=== PATIENT | male | born 1930 | race Caucasian/White ===

== ENCOUNTER 2016-12-21 16:20 | Emergency (ER) | payer MEDICARE, OTHER ==
[2016-12-21 16:55] VITALS: BP 106/72
--- NOTE | 2016-12-21 18:17 | UC ---
Maria Guadalupe Garcia Alok, scribed for Clemencia Batres MD on 12/21/16 at 1651 . Shortness of Breath HPI - HPI Summary HPI Summary: 86M presents to the [facility] for SOB. His symptoms worsen with laughter and ambulation. Pt denies CP or leg pain. Pt just drove from [facility] to [place] last night. Pt with hx CHF on lasix, afib on pradaxa. PMHx includes sudden onset of PNA 2 years ago. Pt had aortic heart valve replaced 2012. Pt had CABG 17 years ago. Pt denies h/o NSTEMI and denies home O2. Pt takes Pradaxa , Lasix, and Aspirin and metoprolol. - History of Current Complaint Stated Complaint: SOB Time Seen by Provider: 12/21/16 16:38 Hx Obtained From: Patient, Family/Post Anesthesia Room Nurse - Onset/Duration: Gradual Onset, Lasting Hours, Still Present Timing: Constant Current Severity: Moderate Dyspnea At: Rest Aggrevating Factors: Movement, Deep Breaths Alleviating Factors: Nothing Associated Signs & Symptoms: Positive: Other - SOB. Negative: Cough (Productive ), Cough (Nonproductive), Cough (Bloody Sputum), Wheezing, Chest Pain w/Cough, Chest Pain Unrelated to Cough, Fever, Calf Pain/Swelling - Risk Factors Pulmonary Embolism: Recent Travel Cardiac: Prior [place], CHF Pseudomonas: Negative Tuberculosis: Negative - Allergy/Home Medications Allergies/Adverse Reactions: Allergies Allergy/AdvReac Type Severity Reaction Status Date / Time No Known Allergies Allergy Verified 12/21/16 16:37 PMH/Surg Hx/FS Hx/Imm Hx Endocrine History Of: Reports: Thyroid Disease Denies: Diabetes Cardiovascular History Of: Reports: Cardiac Disorders - CHF,CABG 1995, NSTEMI, Hypertension, Congestive Heart Failure, Atrial Fibrillation Denies: Pacemaker/ICD Respiratory History Of: Denies: COPD, Asthma GI/ History Of: Reports: Gastroesophageal Reflux Denies: Renal Disease Neurological History Of: Denies: CVA, Dementia, Seizures Psychological History Of: Reports: Anxiety Denies: Depression Other History Of: Anticoagulant Therapy - pradaxa - Surgical History Surgical History: Yes Surgery Procedure, Year, and Place: CABG x5 15 yrs ago - Family History Known Family History: Negative: Cardiac Disease, Hypertension, Diabetes - Social History Occupation: Retired Lives: With Family Alcohol Use: None Substance Use Type: None Smoking Status (MU): Never Smoked Tobacco - Immunization History Most Recent Influenza Vaccination: 2013 Most Recent Tetanus Shot: UNK Most Recent Pneumonia Vaccination: 2012 Review of Systems Constitutional: Negative Respiratory: Shortness Of Breath Cardiovascular: Negative Gastrointestinal: Negative Musculoskeletal: Negative Neurological: Negative Psychological: Negative All Other Systems Reviewed And Are Negative: Yes Physical Exam Triage Information Reviewed: Yes Appearance: No Pain Distress, Well-Nourished, Ill-Appearing Vital Signs: Initial Vital Signs Temp 97.5 F 12/21/16 16:38 Pulse 82 12/21/16 16:38 Resp 32 12/21/16 16:38 BP 106/72 12/21/16 16:38 Pulse Ox 100 12/21/16 16:38 Vital Signs Reviewed: Yes Eyes: Positive: Conjunctiva Clear ENT: Positive: Normal ENT inspection Neck: Positive: Supple, Other: - JVD 6cm Respiratory: Positive: Decreased breath sounds, Other: - Rales bibasalar Cardiovascular: Positive: Murmur:Sys:Grade _?_/ - II, Other: - irregularly irregular Abdomen Description: Positive: Nontender, Soft Bowel Sounds: Positive: Present Musculoskeletal: Positive: Strength Intact, ROM Intact Neurological: Positive: Alert, Muscle Tone Normal Psychological Exam: Normal Skin Exam: Normal Diagnostics - EKG Cardiac Rate: Other Rate - A fib 86 bpm Cardiac Rhythm: AFib: New - TIME: 1638. Prolonged IV conduction time and LBBB. Prolonged QTc 553. Negative Mandan -52. LBBB new compared to 01/11/2017 Shortness of Breath Dx - Course Course Of Treatment: Pt medications reviewed this visit. Pt presented with SOB. Pt denies pain. Vitals reviewed: O2 sat 100, Resp Rate 32. EKG done; shows A- Fib and new LBBB from 2014. Pt will be given 2L O2 and transfered to ED for further evaluation and treatment. - Differential Dx/Diagnosis Differential Diagnosis/HQI/PQRI: CHF, COPD Exacerbation, [place], Pneumonia, Unstable Angina Provider Diagnoses: acute dyspnea - Physician Notification/Consults Discussed Patient Care With: Dr. Farr (ED) @ 5354 - Made aware of pt condition and transit to ED from [facility] by ambulance Instructed by Provider To: MD Will See In ED Discharge - Discharge Plan Condition: Stable Disposition: TRANS [facility] Referrals: Arcadio Sheikh MD [Primary Care Provider] - The documentation as recorded by the Maria Guadalupe evangelista Alok accurately reflects the service I personally performed and the decisions made by me, Clemencia Batres MD.
== END 2016-12-21 17:20 | disposition short-term general hospital (02) ==
LOC: UCEAST 16:20
DX: R06.02 Shortness of breath (principal); I48.91 Unspecified atrial fibrillation; I44.7 Left bundle-branch block, unspecified
CPT/HCPCS: 93005; 99213; G0463

== ENCOUNTER 2016-12-21 17:41 | Observation (INO) | payer MEDICARE, OTHER ==
[2016-12-21 19:00] LABS: Hematocrit 34 % (42-52); Hemoglobin 11.3 g/dl (14.0-18.0); Mean Corpuscular HGB Conc 33 g/dl (31-36); Mean Corpuscular Hemoglobin 31 pg (27-31); Mean Corpuscular Volume 93 fL (80-94); Mean Platelet Volume 10 um3 (7.4-10.4); Red Blood Count 3.66 10^6/ul (4.0-5.4); Red Cell Distribution Width 15 % (10.5-15); White Blood Count 5.5 10^3/ul (3.5-10.8)
[2016-12-21 19:24] LABS: Albumin 3.4 g/dL (3.2-5.2); BUN/Creatinine Ratio 27.6 (8-20); Calcium 8.2 mg/dL (8.6-10.3); EGFR African American 124.5 (>60); EGFR Non-African American 96.8 (>60); Globulin 2.5 g/dL (2-4); Potassium 3.5 mmol/L (3.5-5.0); Total Bilirubin 0.9 mg/dL (0.2-1.0); Total Protein 5.9 g/dL (6.4-8.9)
[2016-12-21 19:25] LABS: Troponin I 0.03 ng/mL (<0.04)
--- NOTE | 2016-12-21 19:31 | RAD ---
INDICATION: Shortness of breath COMPARISON: Most recent chest x-ray January 29, 2016 TECHNIQUE: Single AP portable view of the chest was obtained. FINDINGS: Image quality is compromised due to the relative inferiority of a portable chest x-ray. Postoperative findings appear similar to the previous chest x-ray including sternotomy wires and a prosthetic device overlying the expected location of the aortic valve. There is worsening cardiomegaly relative to the previous chest x-ray now with a moderate degree of cardiomegaly increased from a small degree. There is increased patchy densities and appearance of vascular congestion. There is a mild degree of bibasilar costophrenic angle blunting. Visualized bones are normal for the patient's age. IMPRESSION: Chest x-ray findings are consistent with interval worsening of cardiogenic pulmonary edema with an apparent increase in the degree of cardiomegaly relative to the previous chest x-ray.
[2016-12-21] MEDS ORDERED: Furosemide IV* 10 MG/ML VIAL (40 MG) IV SLOW PU ONE (20:02)
--- NOTE | 2016-12-21 20:22 | ED ---
Jared Garcia Benjamin, scribed for Baron Torres MD on 12/21/16 at 1928 . Shortness of Breath - HPI Summary HPI Summary: 86yo male comes from with c/o SOB with any exertions. Pt has chronic SOB, but reports his SOB worsened this morning. Pt had recent long distance car ride. Pt states that oxygen treatment is helping. Denies CP. Hx of heart valve replacement 2 yrs ago. Also Hx of CHF, Afib, Open Heart surgery 1995, valve replacement, and is on Plavix. - History of Current Complaint Chief Complaint: EDShortnessOfBreath Time Seen by Provider: 12/21/16 18:30 Hx Obtained From: Patient, Family/Pulmonary Physical Therapist - Onset/Duration: Sudden Onset, Lasting Hours, Still Present Timing: Constant Current Severity: Mild Dyspnea At: Exertion Aggrevating Factors: Nothing Alleviating Factors: Oxygen Associated Signs & Symptoms: Negative - Risk Factors Pulmonary Embolism: Recent Travel - Allergy/Home Medications Allergies/Adverse Reactions: Allergies Allergy/AdvReac Type Severity Reaction Status Date / Time No Known Allergies Allergy Verified 12/21/16 16:37 PMH/Surg Hx/FS Hx/Imm Hx Endocrine/Hematology History: Reports: Hx Anticoagulant Therapy - pradaxa, Hx Thyroid Disease Denies: Hx Diabetes Cardiovascular History: Reports: Hx Congestive Heart Failure, Hx Coronary Artery Disease, Hx Hypertension, Hx Valvular Heart Disease - AORTIC STENOSIS, Other Cardiovascular Problems/Disorders - afib, aortic stenosis Denies: Hx Pacemaker/ICD Respiratory History: Denies: Hx Asthma, Hx Chronic Obstructive Pulmonary Disease (COPD) GI History: Reports: Hx Gastroesophageal Reflux Disease, Hx Hiatal Hernia, Other GI Disorders - DYSPHAGIA. EXPLORED FOR ESOPHAGEAL STRICTURE BUT NONE FOUND Denies: Hx Ulcer History: Denies: Hx Renal Disease Sensory History: Reports: Hx Contacts or Glasses Opthamlomology History: Reports: Hx Contacts or Glasses Neurological History: Denies: Hx Dementia, Hx Seizures Psychiatric History: Reports: Hx Anxiety - recently-- last couple months medicaton started Denies: Hx Depression, Hx Substance Abuse - Surgical History Surgery Procedure, Year, and Place: CABG x5 4 yrs ago, experimental valve replacement Hx Anesthesia Reactions: No Infectious Disease History: No Infectious Disease History: Denies: Hx Hepatitis, Hx Human Immunodeficiency Virus (HIV), Traveled Outside the [place] in Last 30 Days - Family History Known Family History: Positive: Cardiac Disease, Hypertension - Social History Occupation: Retired Lives: With Family Alcohol Use: Daily Alcohol Amount: once a day at 1700 - a glass of red wine Substance Use Type: Reports: None Hx Tobacco Use: No Smoking Status (MU): Never Smoked Tobacco Review of Systems Constitutional: Negative Eyes: Negative ENT: Negative Cardiovascular: Negative Negative: Chest Pain Positive: Shortness Of Breath Gastrointestinal: Negative Genitourinary: Negative Musculoskeletal: Negative Skin: Negative Neurological: Negative Psychological: Normal All Other Systems Reviewed And Are Negative: Yes Physical Exam Triage Information Reviewed: Yes Vital Signs On Initial Exam: Initial Vitals Temp Pulse Resp BP Pulse Ox 97.8 F 78 25 113/79 97 12/21/16 18:00 12/21/16 18:00 12/21/16 18:00 12/21/16 18:00 12/21/16 18:00 Vital Signs Reviewed: Yes Appearance: Positive: No Pain Distress, Ill-Appearing - mild sob Skin: Positive: Warm Head/Face: Positive: Normal Head/Face Inspection Eyes: Positive: GOYO ENT: Positive: Hearing grossly normal Neck: Positive: Supple Respiratory/Lung Sounds: Positive: Rales - bibasilar Cardiovascular: Positive: RRR Abdomen Description: Positive: Nontender, Soft Bowel Sounds: Positive: Present Musculoskeletal: Positive: Strength/ROM Intact - trace bipedal edema Neurological: Positive: Alert, Oriented to Person Place, Time Psychiatric: Positive: Affect/Mood Appropriate Diagnostics - Vital Signs Vital Signs Temp Pulse Resp BP Pulse Ox 12/21/16 18:04 77 22 113/79 100 12/21/16 18:03 79 22 99 12/21/16 18:00 97.8 F 78 25 113/79 97 - Laboratory Lab Results: Lab Results 12/21/16 12/21/16 12/21/16 Range/Units 18:40 18:40 18:40 WBC 5.5 (3.5-10.8) 10^3/ul RBC 3.66 L (4.0-5.4) 10^6/ul Hgb 11.3 L (14.0-18.0) g/dl Hct 34 L (42-52) % MCV 93 (80-94) fL MCH 31 (27-31) pg MCHC 33 (31-36) g/dl RDW 15 (10.5-15) % Plt Count 121 L (150-450) 10^3/ul MPV 10 (7.4-10.4) um3 Neut % (Auto) 57.4 (38-83) % Lymph % (Auto) 29.1 (25-47) % Vilas % (Auto) 11.5 H (1-9) % Eos % (Auto) 1.7 (0-6) % Baso % (Auto) 0.3 (0-2) % Absolute Neuts (auto) 3.2 (1.5-7.7) 10^3/ul Absolute Lymphs (auto) 1.6 (1.0-4.8) 10^3/ul Absolute Monos (auto) 0.6 (0-0.8) 10^3/ul Absolute Eos (auto) 0.1 (0-0.6) 10^3/ul Absolute Basos (auto) 0 (0-0.2) 10^3/ul Absolute Nucleated RBC 0 10^3/ul Nucleated RBC % 0 Sodium 140 (133-145) mmol/L Potassium 3.5 (3.5-5.0) mmol/L Chloride 106 (101-111) mmol/L Carbon Dioxide 23 (22-32) mmol/L Anion Gap 11 (2-11) mmol/L BUN 21 (6-24) mg/dL Creatinine 0.76 (0.67-1.17) mg/dL Est GFR ( Amer) 124.5 (>60) Est GFR (Non-Af Amer) 96.8 (>60) BUN/Creatinine Ratio 27.6 H (8-20) Glucose 99 (70-100) mg/dL Lactic Acid 1.1 (0.5-2.0) mmol/L Calcium 8.2 L (8.6-10.3) mg/dL Total Bilirubin 0.90 (0.2-1.0) mg/dL AST 13 (13-39) U/L ALT 18 (7-52) U/L Alkaline Phosphatase 112 H (34-104) U/L Troponin I 0.03 (<0.04) ng/mL Total Protein 5.9 L (6.4-8.9) g/dL Albumin 3.4 (3.2-5.2) g/dL Globulin 2.5 (2-4) g/dL Albumin/Globulin Ratio 1.4 (1-3) Result Diagrams: 12/21/16 18:40 12/21/16 18:40 Lab Statement: Any lab studies that have been ordered have been reviewed, and results considered in the medical decision making process. - Radiology CXR Xray Interpretation: Positive (See Comments) - IMPRESSION: Chest x-ray findings are consistent with interval worsening of cardiogenic pulmonary edema with an apparent increase in the degree of cardiomegaly relative to the previous chest x-ray. Radiology Interpretation Completed By: Radiologist - EKG 180. Cardiac Rate: NL - 86bpm EKG Rhythm: Atrial Fibrillation EKG Interpretation: LBBB Re-Evaluation - Re-Evaluation First Eval Comment: results d/w pt and Course/Dx - Diagnoses Provider Diagnoses: CHF (congestive heart failure) - Physician Notifications Discussed Care of Patient With: Dr. Tellez (hospitalist) @2048 for admission Instructed by Provider To: Admit As Inpatient Discharge - Discharge Plan Condition: Fair Disposition: ADMITTED TO [facility] The documentation as recorded by the Jared evangelista Benjamin accurately reflects the service I personally performed and the decisions made by me, Baron Torres MD.
--- NOTE | 2016-12-21 21:01 | HP ---
H&P (Free Text) History and Physical: PCP: Mehreen Sheikh MD Date/Time of Evaluation: 12/21/20162099 CC: SOB HPI: Mr Wiggins is an 86YO male HX CAD/5vCABG, RIKI who presents with his , neither of whom are reliable historians. They have been out of town to [place] for a grandson's wedding. They returned yesterday, stopping twice and walking. Today, his feels that he is more SOB than his baseline and then developed what she refers to as a "panic attack", but he denies this as well as increased SOB, or any other issues. He specifically denies chest pain, N/V, palpitations, fatigue, F/C, cough, congestion, & light-headedness. Vitals are stable, afebrile. Labs are mainly notable for a BNP of 1100, the highest on record by nearly a factor of 2. ECG is interval development of LBBB ( w/ HX rate related LBBB), but otherwise benign. PMedHx CAD/UT/5vCABG s/p RIKI in 2012 mitral regurgitation rate related LBBB PAOD s/p L CEA AFIB hypothyroidism esophageal stricture s/p dilation hypothyroidism suspect undiagnosed dementia GERD BPH depression Ambulatory Orders Nursing to reconcile. Aspirin Low Dose CHEW TAB* [Aspirin Low Dose TAB*] 81 mg PO DAILY 11/05/12 Atorvastatin* [Lipitor 40 MG*] 40 mg PO 2100 11/05/12 Dabigatran* [Pradaxa*] 150 mg PO BID 11/05/12 Diltiazem CD CAP* [Cardizem CD CAP*] 300 mg PO DAILY 11/05/12 Dutasteride [Avodart] 0.5 mg PO DAILY 11/05/12 Ezetimibe TAB* [Zetia TAB*] 10 mg PO DAILY 11/05/12 Furosemide TAB* [Lasix TAB*] 60 mg PO DAILY 11/05/12 Levothyroxine TAB* [Synthroid 25 MCG TAB*] 50 mcg PO 0800 11/05/12 Omeprazole CAP* [Prilosec CAP*] 20 mg PO DAILY 11/05/12 Finasteride TAB* [Proscar TAB*] 5 mg PO DAILY 11/20/13 Nitroglycerin [Nitrostat] 0.4 mg SL SEE INSTRUCTIONS PRN 11/20/13 Potassium Chloride Microencaps [Klor-Con M20] 20 meq PO DAILY 11/20/13 LORazepam TAB(*) [Ativan TAB(*)] 0.5 mg PO TID PRN 01/10/15 buPROPion TAB* [Wellbutrin TAB*] 75 mg PO DAILY 01/10/15 Allergies No Known Allergies Allergy (Verified 12/21/16 16:37) PSurgHx 5vCABG RIKI 2012 SocHx: no tobacco, alcohol, or recreational drugs; 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 his , 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; 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 FamHx: positive for CAD, HTN, HLD ROS: as above, otherwise reviewed and all were negative Constitutional: NAD, normally developed, well-nourished elderly white male vitals: Vital Signs Temp 36.6 C 12/21/16 18:00 Pulse 77 12/21/16 18:04 Resp 22 12/21/16 18:04 BP 113/79 12/21/16 18:04 Pulse Ox 100 12/21/16 18:04 Intake & Output 12/20/16 12/21/16 12/21/16 23:59 11:59 23:59 Weight 68.039 kg HEENM: atraumatic; sclera/conjunctiva: non-icteric/clear; hearing: clinically intact; oropharynx: clear, mucosa moist Neck: soft tissue: non-tender; thyroid: normal Pulmonary: clear to auscultation bilaterally, good aeration, no accessory muscle use CV: RR/RR, normal S1S2, no carotid bruit, no jugular venous distention, 2+ B DP/ PT, trace to 1+ BLE edema Abdominal: soft, non-distended, non-tender, no rebound/guarding/rigidity, normoactive bowel sounds, no hepatosplenomegaly or masses, no costovertebral angle tenderness Musculoskeletal: general: grossly intact; gait: shuffling, borderline stability Integumental: normal appearance and texture of exposed skin Psychiatric orientation: AA&O to PPS affect: calm mood: cooperative eye contact: fair content: unreliable memory: impaired to recent responses: mildly slowed insight: poor Testing: Lab Results 12/21/16 12/21/16 12/21/16 Range/Units 18:40 18:40 18:40 WBC 5.5 (3.5-10.8) 10^3/ul RBC 3.66 L (4.0-5.4) 10^6/ul Hgb 11.3 L (14.0-18.0) g/dl Hct 34 L (42-52) % MCV 93 (80-94) fL MCH 31 (27-31) pg MCHC 33 (31-36) g/dl RDW 15 (10.5-15) % Plt Count 121 L (150-450) 10^3/ul MPV 10 (7.4-10.4) um3 Neut % (Auto) 57.4 (38-83) % Lymph % (Auto) 29.1 (25-47) % Gaston % (Auto) 11.5 H (1-9) % Eos % (Auto) 1.7 (0-6) % Baso % (Auto) 0.3 (0-2) % Absolute Neuts (auto) 3.2 (1.5-7.7) 10^3/ul Absolute Lymphs (auto) 1.6 (1.0-4.8) 10^3/ul Absolute Monos (auto) 0.6 (0-0.8) 10^3/ul Absolute Eos (auto) 0.1 (0-0.6) 10^3/ul Absolute Basos (auto) 0 (0-0.2) 10^3/ul Absolute Nucleated RBC 0 10^3/ul Nucleated RBC % 0 Sodium 140 (133-145) mmol/L Potassium 3.5 (3.5-5.0) mmol/L Chloride 106 (101-111) mmol/L Carbon Dioxide 23 (22-32) mmol/L Anion Gap 11 (2-11) mmol/L BUN 21 (6-24) mg/dL Creatinine 0.76 (0.67-1.17) mg/dL Est GFR ( Amer) 124.5 (>60) Est GFR (Non-Af Amer) 96.8 (>60) BUN/Creatinine Ratio 27.6 H (8-20) Glucose 99 (70-100) mg/dL Lactic Acid 1.1 (0.5-2.0) mmol/L Calcium 8.2 L (8.6-10.3) mg/dL Total Bilirubin 0.90 (0.2-1.0) mg/dL AST 13 (13-39) U/L ALT 18 (7-52) U/L Alkaline Phosphatase 112 H (34-104) U/L Troponin I 0.03 (<0.04) ng/mL B-Natriuretic Peptide ( - 100) pg/mL Total Protein 5.9 L (6.4-8.9) g/dL Albumin 3.4 (3.2-5.2) g/dL Globulin 2.5 (2-4) g/dL Albumin/Globulin Ratio 1.4 (1-3) / Range/Units 18:40 WBC (3.5-10.8) 10^3/ul RBC (4.0-5.4) 10^6/ul Hgb (14.0-18.0) g/dl Hct (42-52) % MCV (80-94) fL MCH (27-31) pg MCHC (31-36) g/dl RDW (10.5-15) % Plt Count (150-450) 10^3/ul MPV (7.4-10.4) um3 Neut % (Auto) (38-83) % Lymph % (Auto) (25-47) % Gaston % (Auto) (1-9) % Eos % (Auto) (0-6) % Baso % (Auto) (0-2) % Absolute Neuts (auto) (1.5-7.7) 10^3/ul Absolute Lymphs (auto) (1.0-4.8) 10^3/ul Absolute Monos (auto) (0-0.8) 10^3/ul Absolute Eos (auto) (0-0.6) 10^3/ul Absolute Basos (auto) (0-0.2) 10^3/ul Absolute Nucleated RBC 10^3/ul Nucleated RBC % Sodium (133-145) mmol/L Potassium (3.5-5.0) mmol/L Chloride (101-111) mmol/L Carbon Dioxide (22-32) mmol/L Anion Gap (2-11) mmol/L BUN (6-24) mg/dL Creatinine (0.67-1.17) mg/dL Est GFR ( Amer) (>60) Est GFR (Non-Af Amer) (>60) BUN/Creatinine Ratio (8-20) Glucose (70-100) mg/dL Lactic Acid (0.5-2.0) mmol/L Calcium (8.6-10.3) mg/dL Total Bilirubin (0.2-1.0) mg/dL AST (13-39) U/L ALT (7-52) U/L Alkaline Phosphatase (34-104) U/L Troponin I (<0.04) ng/mL B-Natriuretic Peptide 1130 H ( - 100) pg/mL Total Protein (6.4-8.9) g/dL Albumin (3.2-5.2) g/dL Globulin (2-4) g/dL Albumin/Globulin Ratio (1-3) ECG, personally reviewed: AFIB rate 78, LBBB new compared to 2015 CXR, personally reviewed: IMPRESSION: Chest x-ray findings are consistent with interval worsening of cardiogenic pulmonary edema with an apparent increase in the degree of cardiomegaly relative to the previous chest x-ray. 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 : telemetry : furosemide diuresis : strict I&Os : daily weights : low sodium diet : update ECHO in AM : supplemental oxygen : supportive care new LBBB : HX rate related LBBB : no chest pain : telemetry : trend troponin : supplemental oxygen : consider cardiology consult in AM, if necessary Secondary CAD/UT/5vCABG : review meds once reconciled s/p RIKI in 2012 & mitral regurgitation : update ECHO in AM PAOD s/p L CEA : review meds once reconciled AFIB : rate controlled : review meds once reconciled hypothyroidism : review meds once reconciled hypothyroidism : review meds once reconciled GERD : continue omeprazole BPH : review meds once reconciled depression : review meds once reconciled Admission Rational: observation for acute on chronic lemuel/systolic HF & new LBBB DVTp: SCDs & heparin SQ Code Status: full, needs revisiting HCP:
[2016-12-21] MEDS ORDERED: LORazepam TAB(*) 0.5 MG PO PRN (21:53)
[2016-12-21] MEDS ORDERED: Ondansetron INJ* 2 MG/ML VIAL IV PRN (21:57)
[2016-12-21] MEDS ORDERED: Albuterol 2.5 MG/3 ML NEB.SOL* (0.083%) INH PRN (21:57)
[2016-12-21] MEDS ORDERED: Acetaminophen TAB* 325 MG PO PRN (21:57)
[2016-12-21] MEDS ORDERED: traMADol TAB* 50 MG PO PRN (21:57)
[2016-12-21] MEDS ORDERED: CMCS - Melatonin (NF) 3 MG TAB PO PRN (21:57)
[2016-12-21] MEDS: CMCS - Dabigatran CAP(NF) 150 MG CAP PO SCH (23:28)
[2016-12-22 05:59] LABS: Hematocrit 35 % (42-52); Hemoglobin 11.9 g/dl (14.0-18.0); Mean Corpuscular HGB Conc 34 g/dl (31-36); Mean Corpuscular Hemoglobin 31 pg (27-31); Mean Corpuscular Volume 93 fL (80-94); Mean Platelet Volume 10 um3 (7.4-10.4); Red Blood Count 3.79 10^6/ul (4.0-5.4); Red Cell Distribution Width 15 % (10.5-15); White Blood Count 5.6 10^3/ul (3.5-10.8)
[2016-12-22 06:24] LABS: BUN/Creatinine Ratio 21.6 (8-20); Calcium 7.6 mg/dL (8.6-10.3); EGFR African American 105.1 (>60); EGFR Non-African American 81.7 (>60); Potassium 3.2 mmol/L (3.5-5.0)
[2016-12-22] MEDS ORDERED: Potassium Chlor TAB* 20 MEQ TAB.ER PO ONE (07:11)
[2016-12-22] MEDS ORDERED: Omeprazole CAP* 20 MG PO SCH (07:30)
[2016-12-22] MEDS ORDERED: Furosemide IV* 10 MG/ML VIAL (40 MG) IV SCH (08:00)
[2016-12-22 08:04] LABS: Troponin I 0.03 ng/mL (<0.04)
[2016-12-22] MEDS ORDERED: Potassium Chlor TAB* 20 MEQ TAB.ER PO SCH (09:00)
[2016-12-22] MEDS ORDERED: Finasteride TAB* 5 MG PO SCH (09:00)
[2016-12-22] MEDS ORDERED: Docusate CAP* 100 MG PO SCH (09:00)
[2016-12-22] MEDS ORDERED: Ezetimibe TAB* 10 MG PO SCH (09:00)
[2016-12-22] MEDS ORDERED: DUTASTERIDE 0.5 MG PO SCH (09:00)
[2016-12-22] MEDS ORDERED: Aspirin Low Dose CHEW TAB* 81 MG PO SCH (09:00)
[2016-12-22] MEDS ORDERED: buPROPion TAB* 75 MG PO SCH (09:00)
[2016-12-22] MEDS: CMCS - Dabigatran CAP(NF) 150 MG CAP PO SCH (09:19)
--- NOTE | 2016-12-22 10:41 | ECHO ---
Patient: KVNG BOLTON [facility] Rec#: [id number] : 1930 Date: 12/22/2016 Age: 86y Height: 175.3 cm / 69.0 in Weight: 68 kg / 149.9 lbs Sex: M BSA: 1.83 Room#: 452 Admit Date#: 12/21/2016 Type: Inpatient Referring: Malcolm Tellez MD Reading: Ronald Zhu MD Foundry Molder: Deloris Ruano RN RDCS CC: Arcadio Sheikh MD CC: Obi Jean MD Transthoracic Echocardiogram Indication: CHF BP: 99/57 HR: 96 Rhythm: A-Fib Findings History: CAD, WV, CABG, RIKI, mitral regurgitation, A. fib, rate-related LBBB, hypothyroidism Technical Comments: The study quality is fair. Completed at 1015. Left Ventricle: The left ventricular chamber size is normal. Mild concentric left ventricular hypertrophy is observed. There is global hypokinesis of the left ventricle with minor regional variation. There is severely decreased left ventricular systolic function. The estimated ejection fraction is 20-25%. Post surgical hypokinesis of the interventricular septum is observed consistent with coronary artery bypass. There is a left ventricular septal wall motion abnormality observed, possibly due to the presence of a left bundle branch block. The assessment of diastolic function is non-diagnostic. Left Atrium: The left atrium is severely dilated. Right Ventricle: The right ventricular cavity size is normal. The right ventricular global systolic function is low normal. Right Atrium: The right atrial cavity size is severely dilated. Aortic Valve: The aortic valve structure is not well visualized. The mean gradient of the aortic valve is 8 mmHg. The peak instantaneous gradient of the aortic valve is 13.6 mmHg. The aortic valve area, by peak velocities, is calculated at 1.2 cm2. The aortic valve area, by VTI's, is calculated at 1.2 cm2. The dimensionless index is 0.38. A bio-prosthetic aortic valve is present. There is a paravalvular leak of the bio-prosthetic aortic valve. Visually in the apical 5 chamber view there may be 2 areas of leak. Mitral Valve: There is mitral annular calcification. The mitral valve leaflets are mildly thickened. There is moderate to severe mitral regurgitation. There is no evidence of mitral stenosis. Tricuspid Valve: The tricuspid valve leaflets are normal. There is moderate to severe tricuspid regurgitation. There is evidence of moderate to severe pulmonary hypertension. Pulmonic Valve: The pulmonic valve appears normal. There is moderate pulmonic regurgitation. There is no pulmonic stenosis. Pericardium: There is no significant pericardial effusion. Aorta: There is mild dilatation of the ascending aorta. There is no dilatation of the aortic arch. The aortic root is not well visualized. Pulmonary Artery: The main pulmonary artery appears normal. Venous: The inferior vena cava is dilated. There is less than 50% respiratory change in the inferior vena cava dimension. Conclusions Mild concentric left ventricular hypertrophy is observed. There is global hypokinesis of the left ventricle with minor regional variation. There is severely decreased left ventricular systolic function. The estimated ejection fraction is 20-25%. There is a left ventricular septal wall motion abnormality observed, possibly due to the presence of a left bundle branch block. There is moderate to severe mitral regurgitation. The left atrium is severely dilated. There is moderate to severe tricuspid regurgitation. There is evidence of moderate to severe pulmonary hypertension. The right ventricular global systolic function is low normal. The right atrial cavity size is severely dilated. A bio-prosthetic aortic valve is present. There are paravalvular leaks of the bio-prosthetic (TAVR) aortic valve. Visually in the apical 5 chamber view there may be 2 areas of leak. There is moderate pulmonic regurgitation. There is mild dilatation of the ascending aorta. Compared to report of study from 01/11/2015 the degree of TR and MR has increased (was moderate). The degree of pul. HTN has increased (was mild). Measurements Name Value Normal Range RVDdMajor (2D) 4.4 cm (2.2 - 4.4) RAd ISD 4CH 7.8 cm (3.4 - 4.9) RA (A4C)W 5.6 cm (2.9 - 4.6) IVSd (2D) 1.2 cm (0.6 - 1) LVPWd (2D) 1.2 cm (0.6 - 1) LVIDd (2D) 5 cm (3.6 - 5.4) LVIDs (2D) 4.1 cm - LV FS (2D) 18 % (25 - 45) Aortic Annulus 1.9 cm (1.4 - 2.6) Ascending Ao 3.7 cm (2.1 - 3.4) Aortic arch 2.3 cm (1.8 - 3.4) LA dimension (AP) 2D 4.7 cm (2.3 - 3.8) LAd ISD 4CH 7.9 cm (2.9 - 5.3) LA ISD 4CH W 5.4 cm (2.5 - 4.5) Name Value Normal Range LA ESV SP 4CH (A/L) 111 ml - LA ESV SP 2CH (A/L) 84 ml - LA ESV BP (A/L) 100 ml - LA ESV BP (A/L) index 54.7 ml/m2 - LA ESV SP 4CH (MOD) 107 ml - LA ESV SP 2CH (MOD) 80 ml - Name Value Normal Range MV E-wave Vmax 1.2 m/sec - MV deceleration time 173 msec - LV septal e' Vmax 0.04 m/sec - LV lateral e' Vmax 0.09 m/sec - LV E:e' septal ratio 30 ratio - LV E:e' lateral ratio 13.3 ratio - Name Value Normal Range AV Vmax 1.8 m/sec - AV VTI 32 cm - AV peak gradient 13.6 mmHg - AV mean gradient 8 mmHg - LVOT diameter 2 cm - LVOT Vmax 0.69 m/sec - LVOT VTI 12.1 cm - LVOT peak gradient 2 mmHg - LVOT mean gradient 1.1 mmHg - DOI (VTI) 0.38 ratio - DOI (Vmax) 0.38 ratio - SV LVOT 37.4 ml - Cardiac index 1.96 l/min/m2 - CRISTY (continuity Vmax) 1.2 cm2 - CRISTY (continuity VTI) 1.2 cm2 - AR PHT 467 msec - Name Value Normal Range MR Vmax 4.3 m/sec - MR VTI 132 cm - MR volume (PISA) 66 ml - MR flow (PISA) 214 ml/sec - MR ERO 0.5 cm2 - MR PISA radius 0.9 cm - MR alias Vmax 42 cm/sec - Name Value Normal Range TR Vmax 3.1 m/sec - TR peak gradient 38 mmHg - RAP 15 mmHg - RVSP 53 mmHg - IVC diameter 2.7 cm - Name Value Normal Range PV Vmax 0.62 m/sec -
[2016-12-22 15:51] VITALS: BP 109/70
[2016-12-22] MEDS ORDERED: Atorvastatin* 40 MG TAB PO SCH (21:00)
--- NOTE | 2016-12-23 02:04 | DS ---
DISCHARGE SUMMARY: DATE OF ADMISSION: 12/21/16 DATE OF DISCHARGE: 12/22/16 PRIMARY CARE PROVIDER: Dr. Sheikh. DISCHARGE DIAGNOSIS: Acute systolic congestive heart failure. SECONDARY DIAGNOSES: 1. History of coronary artery disease, status post coronary artery bypass grafting. 2. Status post transaortic valve replacement in 2012. 3. History of mitral regurgitation. 4. History of rate-related left bundle branch block. Currently, the patient is in sustained left bundle branch block. 5. History of left carotid endarterectomy. 6. Atrial fibrillation. 7. Hypothyroidism. 8. History of esophageal stricture, status post dilatation. 9. Gastroesophageal reflux disease. 10. Benign prostatic hyperplasia. 11. Depression. 12. 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 MEDICATIONS AT DISCHARGE: Unchanged from home medications at admission and those include: 1. Wellbutrin ER 150 mg daily. 2. Iron supplement 325 mg daily. 3. Lorazepam 0.5 mg 1 to 2 tablets every 4 hours as needed. 4. Klor-Con 20 mEq daily. 5. Nitroglycerin 0.4 mg on a p.r.n. basis. 6. Finasteride 5 mg daily. 7. Omeprazole 20 mg a day. 8. Pradaxa 150 mg b.i.d. 9. Levothyroxine 75 mcg daily. 10. Zetia 10 mg daily. 11. Lipitor 40 mg daily. 12. Aspirin 81 mg daily. 13. PreserVision 2 tablets b.i.d. 14. Metoprolol tartrate 25 mg b.i.d. 15. Furosemide 20 mg daily. 16. Cartia/diltiazem XT 240 mg daily. LABORATORY DATA/STUDIES PERFORMED DURING THE HOSPITAL STAY: Included, in summary: On 12/22/16, white blood cell count 5.6, hemoglobin 11.9, hematocrit 35, and platelets of 124. Sodium was 137, potassium 3.2, chloride 105, carbon dioxide 24, BUN 19, creatinine 0.88. Weight of this patient on the day of discharge was 148 pounds and 1.6 ounces. The patient lost approximately 2 pounds during his hospital stay. Transthoracic echocardiogram obtained during the hospital stay included mild concerns with LVH with the global hypokinesis of the left ventricle with minor regional variation. There was severely decreased left ventricular systolic function with EF of 20% to 25%. The ventricular septal wall motion abnormality is observed due to the presence of left bundle branch block. There is moderate- to- severe mitral regurgitation. There is amavzqva-tn-bplqmf tricuspid regurgitation. There is evidence of qvgtrhws-bp-hpvdfm pulmonary hypertension. The right ventricular global systolic function is low normal. A bioprosthetic aortic valve is present. There are paravalvular leaks of the bioprosthetic aortic valve. Visually in the apical 5 chamber view, there may be two areas of leak. There was moderate pulmonary regurgitation. There was mild dilatation of the ascending aorta. Compared to the report from 2015, the degree of tricuspid regurgitation and mitral regurgitation has increased, was moderate. The degree of pulmonary hypertension had increased and it was mild. The patient's troponins throughout the hospital stay was 0.03. Brain natriuretic peptide at admission was 1130. HOSPITALIZATION COURSE: Raheem Wiggins is an 86-year-old male with history of ischemic cardiomyopathy status post aortic valve replacement with EF of 20% to 25% who stated that he was just coming back from [place] where he was at a grandson's wedding. During his stay in [place], he also went to [place], where he had his valve replaced and saw his fur drummer there approximately 2 to 3 days prior to today's hospital stay. His fur drummer thought that the patient was at baseline. He does have dyspnea with minimal exertion and that is his baseline. Nevertheless, the patient came back from [place] within approximately 24 hours , went to see Dr. Sheikh for a routine followup appointment. Dr. Sheikh noted the patient to be more dyspneic and he sent him to a [facility] for evaluation. [facility] transferred the patient to our emergency department for evaluation. Here, his chest x-ray was compatible with pulmonary edema and the patient was noted to have increased brain natriuretic peptide and dyspnea. He was placed for overnight observation, treated with intravenous Lasix. He diuresed significantly and his weight was approximately 2 pounds less by the time of discharge. His transthoracic echocardiogram shows perivalvular leak, which as per patient stated that it was noted in [place] in [place] and that is chronic. His EF was unchanged at 20% to 25%, although the patient's mitral regurgitation and tricuspid regurgitation was more severe. Nevertheless, by the time of discharge the patient has felt back at his baseline. The patient ambulated without the need or use of oxygen. He is going to be discharged home to restart all of his medications as unchanged in the morning. At this point, the most likely exacerbation of his chronic systolic CHF was caused by dietary indiscretion during his grandson's wedding as well as eating at [employer] on the way back from [place] to [place]. PHYSICAL EXAMINATION: At the time of discharge, blood pressure 92/67, heart rate of 89 and irregularly irregular, respiratory rate 16-26, oxygen saturation 96% on room air, temperature 97.7. General: The patient is a very pleasant 86-year-old male who is in no acute distress. Awake, alert, and oriented x3. HEENT: Head atraumatic, normocephalic. Eyes: Pupils equal and reactive to light and accommodation. Oropharynx clear. Mucosa moist. Neck: Supple. No JVD. No bruits bilaterally. Cardiovascular: Irregularly irregular rhythm with 2/6 systolic ejection murmur on auscultation of the apex. Respiratory: Clear to auscultation bilaterally. Abdomen: Soft and nontender. Bowel sounds present in all 4 quadrants. Extremities: There is trace bilateral pedal edema. Pulses are +2 bilaterally. There is no clubbing or cyanosis. Neuro Evaluation : Speech is clear. Cranial nerves II through XII are grossly intact. Motor strength is 5/5 bilaterally. At discharge, the patient was recommended to follow with Dr. Jean in approximately 1 month. The patient is aware that he is supposed to eat cardiac no-salt diet. The patient is also recommended to follow up with Dr. Sheikh in approximately 4 to 7 days after discharge. Please also note that the patient has a history of left bundle branch block that was rate related. Currently, it appears that the patient had been in atrial fibrillation with left bundle branch block despite his heart rate being rate controlled in the 80s and 90s. CC: Dr. Sheikh; Dr. Jean* [id number]/[facility] #: [id number] [facility]
== END 2016-12-22 16:47 | disposition home or self-care (01) ==
LOC: ED 17:41 → MEDTELE 20:59
PROVIDERS: ADMIT Hospitalist; ATTEND Internal Medicine
DX: I50.21 Acute systolic (congestive) heart failure (principal); I25.10 Atherosclerotic heart disease of native coronary artery without angina pectoris; Z95.1 Presence of aortocoronary bypass graft; Z95.2 Presence of prosthetic heart valve; I48.91 Unspecified atrial fibrillation; Z79.01 Long term (current) use of anticoagulants; I34.0 Nonrheumatic mitral (valve) insufficiency; I44.7 Left bundle-branch block, unspecified; E03.9 Hypothyroidism, unspecified; K21.9 Gastro-esophageal reflux disease without esophagitis; N40.0 Benign prostatic hyperplasia without lower urinary tract symptoms; F32.9 Major depressive disorder, single episode, unspecified; G72.89 Other specified myopathies; I36.1 Nonrheumatic tricuspid (valve) insufficiency; I27.2 Other secondary pulmonary hypertension; I37.1 Nonrheumatic pulmonary valve insufficiency; I50.1 Left ventricular failure, unspecified
CPT/HCPCS: 36415; 71010; 80048; 80053; 83605; 83880; 84484; 85025; 85027; 93005; 93306; 99284; A9270-GY; G0378; G8978-GP-CH; G8979-GP-CH; G8980-GP-CH; J1940

== ENCOUNTER 2016-12-23 00:09 | Inpatient (IN) | payer MEDICARE, OTHER ==
[2016-12-23 00:57] LABS: Hematocrit 38 % (42-52); Hemoglobin 12.6 g/dl (14.0-18.0); Mean Corpuscular HGB Conc 33 g/dl (31-36); Mean Corpuscular Hemoglobin 31 pg (27-31); Mean Corpuscular Volume 94 fL (80-94); Mean Platelet Volume 10 um3 (7.4-10.4); Red Blood Count 4.06 10^6/ul (4.0-5.4); Red Cell Distribution Width 15 % (10.5-15); White Blood Count 8.4 10^3/ul (3.5-10.8)
[2016-12-23 01:11] LABS: Albumin 3.8 g/dL (3.2-5.2); BUN/Creatinine Ratio 21.4 (8-20); C Reactive Protein 4.37 mg/L (< 5.00); Calcium 8.6 mg/dL (8.6-10.3); EGFR African American 92.8 (>60); EGFR Non-African American 72.2 (>60); Globulin 2.9 g/dL (2-4); Potassium 3.8 mmol/L (3.5-5.0); Total Bilirubin 1.2 mg/dL (0.2-1.0); Total Protein 6.7 g/dL (6.4-8.9)
[2016-12-23] MEDS: NS 0.9% 1000 ML* 1,000 ML IV SCH ×2 (01:27→06:19)
[2016-12-23 01:35] LABS: TSH (Thyroid Stimulating Horm) 9.87 mcIU/mL (0.34-5.60)
[2016-12-23 01:57] LABS: Troponin I 0.47 ng/mL (<0.04)
--- NOTE | 2016-12-23 02:15 | HP ---
H&P (Free Text) History and Physical: PCP: Mehreen Sheikh MD Date/Time of Evaluation: 12/23/2016 0230 CC: SOB HPI: Mr Wiggins is an 86YO male very poor historian admitted to [facility] 12/21-2016 for SOB 2nd acute on chronic lemuel/systolic HF. He reports arriving home after discharge and shortly afterwards again developing SOB for which his called EMS. Upon their arrival he was found to be in AFIB/RVR and given diltiazem IV in the field. He denies chest pain, F/C, cough, congestion, palpitations, N/V, sweating, light-headedness, or other issues. Rate is currently in the 100-120s. SaO2 is high 90s on RA at rest. Troponin is increased from 0.03 to 0.42. ECG is AFIB rate 106, LBBB. CXR shows interval improvement in congestive changes. PMedHx CAD/IL/5vCABG cardiomyopathy EF 20-25% mod to severe MR/TR mod to severe pHTN s/p RIKI in 2012 LBBB PAOD s/p L CEA AFIB hypothyroidism esophageal stricture s/p dilation suspect undiagnosed dementia GERD BPH depression Ambulatory Orders Aspirin Low Dose CHEW TAB* [Aspirin Low Dose TAB*] 81 mg PO DAILY 11/05/12 Atorvastatin* [Lipitor 40 MG*] 40 mg PO 2100 11/05/12 Dabigatran* [Pradaxa*] 150 mg PO BID 11/05/12 Diltiazem CD CAP* [Cardizem CD CAP*] mg PO DAILY 11/05/12 Dutasteride [Avodart] 0.5 mg PO DAILY 11/05/12 Ezetimibe TAB* [Zetia TAB*] 10 mg PO DAILY 11/05/12 Furosemide TAB* [Lasix TAB*] mg PO DAILY 11/05/12 Levothyroxine TAB* [Synthroid 25 MCG TAB*] 25 mcg PO 0800 11/05/12 Omeprazole CAP* [Prilosec CAP* 20 MG] 20 mg PO DAILY 11/05/12 Finasteride TAB* [Proscar TAB*] 5 mg PO DAILY 11/20/13 Nitroglycerin [Nitrostat] 0.4 mg SL SEE INSTRUCTIONS PRN 11/20/13 Potassium Chloride Microencaps [Klor-Con M20] 20 meq PO DAILY 11/20/13 LORazepam TAB(*) [Ativan 0.5 MG TAB (*)] 0.5 mg PO TID PRN 01/10/15 Metoprolol Tartrate TAB* [Lopressor TAB*] 25 mg PO BID #60 tab 12/22/16 buPROPion TAB* [Wellbutrin TAB*] 150 mg PO DAILY #0 12/22/16 Allergies No Known Allergies Allergy (Verified 12/21/16 16:37) PSurgHx 5vCABG RIKI 2012 SocHx: no tobacco, alcohol, or recreational drugs; lives with his , 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; 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 FamHx: positive for CAD, HTN, HLD ROS: as above, otherwise reviewed and all were negative Constitutional: NAD, normally developed, well-nourished elderly white male vitals: Vital Signs Temp 35.9 C 12/23/16 00:40 Pulse 92 12/23/16 02:00 Resp 32 12/23/16 02:30 BP 104/74 12/23/16 02:30 Pulse Ox 97 12/23/16 02:00 Intake & Output 12/22/16 12/22/16 12/23/16 11:59 23:59 11:59 Weight 65.771 kg HEENM: atraumatic; sclera/conjunctiva: non-icteric/clear; hearing: clinically intact; oropharynx: clear, mucosa moist Neck: soft tissue: non-tender; thyroid: normal Pulmonary: clear to auscultation bilaterally, good aeration, no accessory muscle use CV: TIR/IR, normal S1S2, no carotid bruit, variable intensity systolic murmur, no jugular venous distention, 2+ B DP/PT, trace to 1+ BLE edema Abdominal: soft, non-distended, non-tender, no rebound/guarding/rigidity, normoactive bowel sounds, no hepatosplenomegaly or masses, no costovertebral angle tenderness Musculoskeletal: general: grossly intact; gait: shuffling, borderline stability Integumental: normal appearance and texture of exposed skin Psychiatric orientation: AA&O to PPS affect: fatigued mood: cooperative eye contact: fair content: unreliable responses: mildly slowed insight: poor Testing: Lab Results 12/23/16 12/23/16 12/23/16 Range/Units 00:43 00:43 00:43 WBC 8.4 (3.5-10.8) 10^3/ul RBC 4.06 (4.0-5.4) 10^6/ul Hgb 12.6 L (14.0-18.0) g/dl Hct 38 L (42-52) % MCV 94 (80-94) fL MCH 31 (27-31) pg MCHC 33 (31-36) g/dl RDW 15 (10.5-15) % Plt Count 130 L (150-450) 10^3/ul MPV 10 (7.4-10.4) um3 Neut % (Auto) 78.4 (38-83) % Lymph % (Auto) 13.6 L (25-47) % Roberts % (Auto) 6.9 (1-9) % Eos % (Auto) 0.4 (0-6) % Baso % (Auto) 0.7 (0-2) % Absolute Neuts (auto) 6.6 (1.5-7.7) 10^3/ul Absolute Lymphs (auto) 1.1 (1.0-4.8) 10^3/ul Absolute Monos (auto) 0.6 (0-0.8) 10^3/ul Absolute Eos (auto) 0 (0-0.6) 10^3/ul Absolute Basos (auto) 0.1 (0-0.2) 10^3/ul Absolute Nucleated RBC 0.01 10^3/ul Nucleated RBC % 0.1 INR (Anticoag Therapy) 1.29 H (0.89-1.11) APTT 34.0 (26.0-36.3) seconds D-Dimer, Quantitative 237 H (Less Than 230) ng/mL Sodium 138 (133-145) mmol/L Potassium 3.8 (3.5-5.0) mmol/L Chloride 104 (101-111) mmol/L Carbon Dioxide 24 (22-32) mmol/L Anion Gap 10 (2-11) mmol/L BUN 21 (6-24) mg/dL Creatinine 0.98 (0.67-1.17) mg/dL Est GFR ( Amer) 92.8 (>60) Est GFR (Non-Af Amer) 72.2 (>60) BUN/Creatinine Ratio 21.4 H (8-20) Glucose 140 H (70-100) mg/dL Lactic Acid (0.5-2.0) mmol/L Calcium 8.6 (8.6-10.3) mg/dL Magnesium 2.0 (1.9-2.7) mg/dL Total Bilirubin 1.20 H (0.2-1.0) mg/dL AST 15 (13-39) U/L ALT 18 (7-52) U/L Alkaline Phosphatase 128 H (34-104) U/L Total Creatine Kinase 95 (10-223) U/L CK-MB (CK-2) 13.5 H (0.6-6.3) ng/mL Troponin I 0.47 H* (<0.04) ng/mL C-Reactive Protein 4.37 (< 5.00) mg/L B-Natriuretic Peptide ( - 100) pg/mL Total Protein 6.7 (6.4-8.9) g/dL Albumin 3.8 (3.2-5.2) g/dL Globulin 2.9 (2-4) g/dL Albumin/Globulin Ratio 1.3 (1-3) Lipase 30 (11.0-82.0) U/L TSH 9.87 H (0.34-5.60) mcIU/mL 12/23/16 12/23/16 12/23/16 Range/Units 00:43 00:43 02:00 WBC (3.5-10.8) 10^3/ul RBC (4.0-5.4) 10^6/ul Hgb (14.0-18.0) g/dl Hct (42-52) % MCV (80-94) fL MCH (27-31) pg MCHC (31-36) g/dl RDW (10.5-15) % Plt Count (150-450) 10^3/ul MPV (7.4-10.4) um3 Neut % (Auto) (38-83) % Lymph % (Auto) (25-47) % Roberts % (Auto) (1-9) % Eos % (Auto) (0-6) % Baso % (Auto) (0-2) % Absolute Neuts (auto) (1.5-7.7) 10^3/ul Absolute Lymphs (auto) (1.0-4.8) 10^3/ul Absolute Monos (auto) (0-0.8) 10^3/ul Absolute Eos (auto) (0-0.6) 10^3/ul Absolute Basos (auto) (0-0.2) 10^3/ul Absolute Nucleated RBC 10^3/ul Nucleated RBC % INR (Anticoag Therapy) (0.89-1.11) APTT (26.0-36.3) seconds D-Dimer, Quantitative (Less Than 230) ng/mL Sodium (133-145) mmol/L Potassium (3.5-5.0) mmol/L Chloride (101-111) mmol/L Carbon Dioxide (22-32) mmol/L Anion Gap (2-11) mmol/L BUN (6-24) mg/dL Creatinine (0.67-1.17) mg/dL Est GFR ( Amer) (>60) Est GFR (Non-Af Amer) (>60) BUN/Creatinine Ratio (8-20) Glucose (70-100) mg/dL Lactic Acid 2.6 H* (0.5-2.0) mmol/L Calcium (8.6-10.3) mg/dL Magnesium (1.9-2.7) mg/dL Total Bilirubin (0.2-1.0) mg/dL AST (13-39) U/L ALT (7-52) U/L Alkaline Phosphatase (34-104) U/L Total Creatine Kinase (10-223) U/L CK-MB (CK-2) (0.6-6.3) ng/mL Troponin I 0.90 H* (<0.04) ng/mL C-Reactive Protein (< 5.00) mg/L B-Natriuretic Peptide 665 H ( - 100) pg/mL Total Protein (6.4-8.9) g/dL Albumin (3.2-5.2) g/dL Globulin (2-4) g/dL Albumin/Globulin Ratio (1-3) Lipase (11.0-82.0) U/L TSH (0.34-5.60) mcIU/mL ECG, personally reviewed: AFIB rate 106, LBBB, occasional PVCs CXR, personally reviewed: IMPRESSION: interval improvement in congestive changes ECHO (12/22/2016): Conclusions: Mild concentric left ventricular hypertrophy is observed. There is global hypokinesis of the left ventricle with minor regional variation. There is severely decreased left ventricular systolic function. The estimated ejection fraction is 20-25%. There is a left ventricular septal wall motion abnormality observed, possibly due to the presence of a left bundle branch block. There is moderate to severe mitral regurgitation. The left atrium is severely dilated. There is moderate to severe tricuspid regurgitation. There is evidence of moderate to severe pulmonary hypertension. The right ventricular global systolic function is low normal. The right atrial cavity size is severely dilated. A bio-prosthetic aortic valve is present. There are paravalvular leaks of the bio-prosthetic (TAVR) aortic valve. Visually in the apical 5 chamber view there may be 2 areas of leak. There is moderate pulmonic regurgitation. There is mild dilatation of the ascending aorta. Compared to report of study from 01/11/2015 the degree of TR and MR has increased (was moderate). The degree of pul. HTN has increased (was mild). Impression: 86M presenting with AFIB/RVR & 2nd NSTEMI DIAGNOSIS & PLAN Primary AFIB/RVR : rate control : continue metoprolol & diltiazem NSTEMI ? demand ischemia : HX CAD/IL/5vCABG/RIKI : aspirin : metoprolol : heparin GTT, hold dabigatran : supplemental oxygen : telemetry : cardiology consult in AM : supportive care Secondary PAOD s/p L CEA : continue atorvastatin & ezetimibe hypothyroidism : continue levothyroxine : check TSH GERD : continue omeprazole BPH : continue finasteride depression : continue bupropion Admission Rational: inpatient for AFIB RVR, NSTEMI; inappropriate for outpatient setting DVTp: dabigatran Code Status: full, needs revisiting HCP:
[2016-12-23] MEDS ORDERED: Acetaminophen TAB* 325 MG PO PRN (02:31)
[2016-12-23] MEDS ORDERED: Ondansetron INJ* 2 MG/ML VIAL IV PRN (02:45)
[2016-12-23] MEDS ORDERED: Melatonin (NF) 3 MG TAB PO PRN (02:45)
[2016-12-23] MEDS ORDERED: Heparin VIAL(*) 5000 UNITS/ML VIAL (FIVE THOUSAND) IV PRN (02:59)
[2016-12-23] MEDS ORDERED: Metoprolol Tartrate IV* 1 MG/ML 5 ML VIAL IV ONE (03:02)
[2016-12-23] MEDS ORDERED: Aspirin Low Dose CHEW TAB* 81 MG PO ONE (03:03)
--- NOTE | 2016-12-23 03:56 | ED ---
Jared Garcia Benjamin, scribed for Willy Terry MD on 12/23/16 at 0054 . Shortness of Breath - HPI Summary HPI Summary: 86yo male BIB EMS for SOB. Pt was admitted on 12/21 for SOB and was mi'ed earlier today. Pt returns with the same complaint now. Denies CP. Pt has hx of CAD, CABG, valve replacement, CHF. On a blood thinner. Pt recently had long distance car ride. - History of Current Complaint Chief Complaint: EDShortnessOfBreath Time Seen by Provider: 12/23/16 00:16 Hx Obtained From: Patient, Family/Personal Protection Specialist - Onset/Duration: Gradual Onset, Lasting Days, Still Present Timing: Constant Current Severity: Mild Dyspnea At: Rest Alleviating Factors: Nothing Associated Signs & Symptoms: Negative Related History: Similar Episode - for past few days. - Allergy/Home Medications Allergies/Adverse Reactions: Allergies Allergy/AdvReac Type Severity Reaction Status Date / Time No Known Allergies Allergy Verified 12/21/16 16:37 PMH/Surg Hx/FS Hx/Imm Hx Endocrine/Hematology History: Reports: Hx Anticoagulant Therapy - pradaxa, Hx Thyroid Disease Denies: Hx Diabetes Cardiovascular History: Reports: Hx Congestive Heart Failure, Hx Coronary Artery Disease, Hx Valvular Heart Disease - AORTIC STENOSIS, Other Cardiovascular Problems/Disorders - afib, aortic stenosis Denies: Hx Hypertension, Hx Pacemaker/ICD Respiratory History: Denies: Hx Asthma, Hx Chronic Obstructive Pulmonary Disease (COPD) GI History: Reports: Hx Gastroesophageal Reflux Disease, Hx Hiatal Hernia, Other GI Disorders - DYSPHAGIA. EXPLORED FOR ESOPHAGEAL STRICTURE BUT NONE FOUND Denies: Hx Ulcer History: Denies: Hx Dialysis, Hx Renal Disease Musculoskeletal History: Denies: Hx Back Problems Sensory History: Reports: Hx Contacts or Glasses Denies: Hx Hearing Aid Opthamlomology History: Reports: Hx Contacts or Glasses Neurological History: Denies: Hx Dementia, Hx Seizures Psychiatric History: Reports: Hx Anxiety - recently-- last couple months medicaton started Denies: Hx Depression, Hx Substance Abuse - Surgical History Surgery Procedure, Year, and Place: CABG x5 4 yrs ago, experimental valve replacement Hx Anesthesia Reactions: No Infectious Disease History: Denies: Hx Hepatitis, Hx Human Immunodeficiency Virus (HIV), Traveled Outside the [place] in Last 30 Days - Family History Known Family History: Positive: Cardiac Disease, Hypertension - Social History Alcohol Use: Daily Alcohol Amount: once a day at 1700 - a glass of red wine Substance Use Type: Reports: None Hx Tobacco Use: No Smoking Status (MU): Never Smoked Tobacco Review of Systems Constitutional: Negative Eyes: Negative ENT: Negative Cardiovascular: Negative Positive: Shortness Of Breath Gastrointestinal: Negative Genitourinary: Negative Musculoskeletal: Negative Skin: Negative Neurological: Negative Psychological: Normal All Other Systems Reviewed And Are Negative: Yes Physical Exam Triage Information Reviewed: Yes Vital Signs On Initial Exam: Initial Vitals Temp Pulse Resp BP Pulse Ox 96.6 F 108 20 106/74 99 12/23/16 00:22 12/23/16 00:22 12/23/16 00:22 12/23/16 00:22 12/23/16 00:22 Vital Signs Reviewed: Yes Appearance: Positive: Well-Appearing, No Pain Distress, Well-Nourished Skin: Positive: Warm, Skin Color Reflects Adequate Perfusion, Dry Head/Face: Positive: Normal Head/Face Inspection Eyes: Positive: EOMI, GOYO ENT: Positive: Normal ENT inspection Neck: Positive: Supple, Nontender Respiratory/Lung Sounds: Positive: Clear to Auscultation, Breath Sounds Present Cardiovascular: Positive: RRR, Murmur - blowing murmurs Abdomen Description: Positive: Nontender, No Organomegaly, Soft Bowel Sounds: Positive: Present Musculoskeletal: Positive: Normal, Strength/ROM Intact Neurological: Positive: Normal, Sensory/Motor Intact Psychiatric: Positive: Affect/Mood Appropriate Diagnostics - Vital Signs Vital Signs Temp Pulse Resp BP Pulse Ox 12/23/16 00:22 96.6 F 108 20 106/74 99 - Laboratory Lab Results: Lab Results 12/23/16 12/23/16 12/23/16 Range/Units 00:43 00:43 00:43 WBC 8.4 (3.5-10.8) 10^3/ul RBC 4.06 (4.0-5.4) 10^6/ul Hgb 12.6 L (14.0-18.0) g/dl Hct 38 L (42-52) % MCV 94 (80-94) fL MCH 31 (27-31) pg MCHC 33 (31-36) g/dl RDW 15 (10.5-15) % Plt Count 130 L (150-450) 10^3/ul MPV 10 (7.4-10.4) um3 Neut % (Auto) 78.4 (38-83) % Lymph % (Auto) 13.6 L (25-47) % [place] % (Auto) 6.9 (1-9) % Eos % (Auto) 0.4 (0-6) % Baso % (Auto) 0.7 (0-2) % Absolute Neuts (auto) 6.6 (1.5-7.7) 10^3/ul Absolute Lymphs (auto) 1.1 (1.0-4.8) 10^3/ul Absolute Monos (auto) 0.6 (0-0.8) 10^3/ul Absolute Eos (auto) 0 (0-0.6) 10^3/ul Absolute Basos (auto) 0.1 (0-0.2) 10^3/ul Absolute Nucleated RBC 0.01 10^3/ul Nucleated RBC % 0.1 INR (Anticoag Therapy) 1.29 H (0.89-1.11) APTT 34.0 (26.0-36.3) seconds D-Dimer, Quantitative 237 H (Less Than 230) ng/mL Sodium 138 (133-145) mmol/L Potassium 3.8 (3.5-5.0) mmol/L Chloride 104 (101-111) mmol/L Carbon Dioxide 24 (22-32) mmol/L Anion Gap 10 (2-11) mmol/L BUN 21 (6-24) mg/dL Creatinine 0.98 (0.67-1.17) mg/dL Est GFR ( Amer) 92.8 (>60) Est GFR (Non-Af Amer) 72.2 (>60) BUN/Creatinine Ratio 21.4 H (8-20) Glucose 140 H (70-100) mg/dL Lactic Acid (0.5-2.0) mmol/L Calcium 8.6 (8.6-10.3) mg/dL Magnesium 2.0 (1.9-2.7) mg/dL Total Bilirubin 1.20 H (0.2-1.0) mg/dL AST 15 (13-39) U/L ALT 18 (7-52) U/L Alkaline Phosphatase 128 H (34-104) U/L Total Creatine Kinase 95 (10-223) U/L CK-MB (CK-2) 13.5 H (0.6-6.3) ng/mL Troponin I 0.47 H* (<0.04) ng/mL C-Reactive Protein 4.37 (< 5.00) mg/L B-Natriuretic Peptide ( - 100) pg/mL Total Protein 6.7 (6.4-8.9) g/dL Albumin 3.8 (3.2-5.2) g/dL Globulin 2.9 (2-4) g/dL Albumin/Globulin Ratio 1.3 (1-3) Lipase 30 (11.0-82.0) U/L TSH 9.87 H (0.34-5.60) mcIU/mL 12/23/16 12/23/16 12/23/16 Range/Units 00:43 00:43 02:00 WBC (3.5-10.8) 10^3/ul RBC (4.0-5.4) 10^6/ul Hgb (14.0-18.0) g/dl Hct (42-52) % MCV (80-94) fL MCH (27-31) pg MCHC (31-36) g/dl RDW (10.5-15) % Plt Count (150-450) 10^3/ul MPV (7.4-10.4) um3 Neut % (Auto) (38-83) % Lymph % (Auto) (25-47) % [place] % (Auto) (1-9) % Eos % (Auto) (0-6) % Baso % (Auto) (0-2) % Absolute Neuts (auto) (1.5-7.7) 10^3/ul Absolute Lymphs (auto) (1.0-4.8) 10^3/ul Absolute Monos (auto) (0-0.8) 10^3/ul Absolute Eos (auto) (0-0.6) 10^3/ul Absolute Basos (auto) (0-0.2) 10^3/ul Absolute Nucleated RBC 10^3/ul Nucleated RBC % INR (Anticoag Therapy) (0.89-1.11) APTT (26.0-36.3) seconds D-Dimer, Quantitative (Less Than 230) ng/mL Sodium (133-145) mmol/L Potassium (3.5-5.0) mmol/L Chloride (101-111) mmol/L Carbon Dioxide (22-32) mmol/L Anion Gap (2-11) mmol/L BUN (6-24) mg/dL Creatinine (0.67-1.17) mg/dL Est GFR ( Amer) (>60) Est GFR (Non-Af Amer) (>60) BUN/Creatinine Ratio (8-20) Glucose (70-100) mg/dL Lactic Acid 2.6 H* (0.5-2.0) mmol/L Calcium (8.6-10.3) mg/dL Magnesium (1.9-2.7) mg/dL Total Bilirubin (0.2-1.0) mg/dL AST (13-39) U/L ALT (7-52) U/L Alkaline Phosphatase (34-104) U/L Total Creatine Kinase (10-223) U/L CK-MB (CK-2) (0.6-6.3) ng/mL Troponin I 0.90 H* (<0.04) ng/mL C-Reactive Protein (< 5.00) mg/L B-Natriuretic Peptide 665 H ( - 100) pg/mL Total Protein (6.4-8.9) g/dL Albumin (3.2-5.2) g/dL Globulin (2-4) g/dL Albumin/Globulin Ratio (1-3) Lipase (11.0-82.0) U/L TSH (0.34-5.60) mcIU/mL Result Diagrams: 12/23/16 00:43 12/23/16 00:43 Lab Statement: Any lab studies that have been ordered have been reviewed, and results considered in the medical decision making process. - Radiology CXR Xray Interpretation: Positive (See Comments) - pulmonary edema. Radiology Interpretation Completed By: ED Physician - EKG 0015. Cardiac Rate: Tachycardia - 106bpm EKG Rhythm: Atrial Fibrillation EKG Interpretation: LBBB. Course/Dx - Course Course Of Treatment: CRITICAL CARE TIME LESS THAN 30 MINUTES Assessment/Plan: DR BAE ADMIT HOSPITALIST GUARDED. - Diagnoses Provider Diagnoses: Dyspnea, Myocardial infarct, Afib - Physician Notifications Discussed Care of Patient With: Dr. Frankenberg (hospitalist) @0127. Discharge - Discharge Plan Condition: Guarded Disposition: ADMITTED TO [facility] The documentation as recorded by the scribeJared Benjamin accurately reflects the service I personally performed and the decisions made by me, Willy Terry MD.
[2016-12-23] MEDS: Omeprazole CAP* 20 MG PO SCH (05:04)
[2016-12-23 05:35] LABS: Troponin I 1.71 ng/mL (<0.04)
[2016-12-23] MEDS ORDERED: Levothyroxine TAB* 50 MCG TAB PO SCH (06:00)
[2016-12-23] MEDS ORDERED: Omeprazole CAP* 20 MG PO SCH (06:00)
[2016-12-23 07:01] LABS: Urine Bacteria Absent (Absent); Urine Bilirubin Negative (Negative); Urine Glucose Negative (Negative); Urine Nitrite Negative (Negative)
[2016-12-23] MEDS: Heparin DRIP 25,000 UNITS(*) 25,000 UNITS/500 ML BAG IVPB SCH (07:13)
[2016-12-23] MEDS: Docusate CAP* 100 MG PO SCH ×2 (07:26→20:23)
[2016-12-23] MEDS: Aspirin Low Dose CHEW TAB* 81 MG PO SCH (07:28)
[2016-12-23] MEDS: buPROPion TAB* 75 MG PO SCH (07:28)
[2016-12-23] MEDS: Diltiazem CD CAP* 240 MG PO SCH (07:28)
[2016-12-23] MEDS: Potassium Chlor TAB* 20 MEQ TAB.ER PO SCH (07:28)
[2016-12-23] MEDS: Metoprolol Tartrate TAB* 25 MG PO SCH ×2 (07:30→20:23)
[2016-12-23] MEDS: Finasteride TAB* 5 MG PO SCH (07:30)
[2016-12-23] MEDS: Furosemide TAB* 20 MG PO SCH (07:31)
--- NOTE | 2016-12-23 07:45 | RAD ---
INDICATION: Palpitations COMPARISON: December 21, 2016 TECHNIQUE: An AP portable view obtained at 0033 hours is submitted. FINDINGS: Bones/Soft Tissues: There are no acute bony findings. There is sternotomy Cardiomediastinal: The cardiac silhouette is enlarged. Pericardial effusion is not excluded. The appearance unchanged. Lungs: There is mild hyperinflation. There is mild interstitial congestion.. Pleura: There are small bilateral pleural effusions. Other: None IMPRESSION: LARGE CORRECT SILHOUETTE WITH MILD TO MODERATE PULMONARY VENOUS CONGESTION.
[2016-12-23] MEDS: Ezetimibe TAB* 10 MG PO SCH (07:48)
[2016-12-23] MEDS ORDERED: Iohexol 350* (CONTRAST) 500 ML MDV IV ONE (09:41)
--- NOTE | 2016-12-23 10:54 | RAD ---
Indication: Evaluate for pulmonary embolus, evaluate CHF. CTA of the chest was performed after IV contrast administration. Coronal and sagittal reconstructed images were obtained. The central pulmonary arterial tree is well opacified. No definite filling defects are present to suggest pulmonary embolus. There is slow flow and distal pulmonary arteries are not well opacified. Bilateral pleural effusions are noted. Interstitial edema with alveolar infiltrates are noted bilaterally. Cardiomegaly without evidence of pericardial effusion is noted. Patient is status post ascending aorta repair. No pneumothorax is noted. IMPRESSION: Cardiomegaly. Aortic stent graft is in place. CHF is noted with no obvious pulmonary embolus although the peripheral vessels are not well opacified. Tortuous descending aorta is noted. No definite pulmonary embolus is noted.
[2016-12-23] MEDS ORDERED: Furosemide IV* 10 MG/ML 2 ML VIAL (20 MG) IV ONE ×2 (13:10→18:00)
--- NOTE | 2016-12-23 15:44 | PN ---
Subjective Date of Service: 12/23/16 Interval History: Pt feels "very bad": tired and SOB. Denies CP Objective Active Medications: Acetaminophen (Tylenol Tab*) 650 mg PO Q6H PRN PRN Reason: FEVER/PAIN Aspirin (Aspirin Low Dose Tab*) 81 mg PO DAILY [facility] Last Admin: 12/23/16 07:28 Dose: 81 mg Atorvastatin Calcium (Lipitor*) 40 mg PO 2100 [facility] Bupropion HCl (Wellbutrin Tab*) 150 mg PO DAILY [facility] Last Admin: 12/23/16 07:28 Dose: 150 mg Diltiazem HCl (Cardizem Cd Cap*) 240 mg PO DAILY [facility] Last Admin: 12/23/16 07:28 Dose: 240 mg Docusate Sodium (Colace Cap*) 200 mg PO BID [facility] Last Admin: 12/23/16 07:26 Dose: 200 mg Ezetimibe (Zetia Tab*) 10 mg PO DAILY [facility] Last Admin: 12/23/16 07:48 Dose: 10 mg Finasteride (Proscar Tab*) 5 mg PO DAILY [facility] Last Admin: 12/23/16 07:30 Dose: 5 mg Furosemide (Lasix Tab*) 20 mg PO DAILY [facility] Last Admin: 12/23/16 07:31 Dose: 20 mg Heparin Sodium (Porcine) (Heparin Vial(*)) 0 units IV .PER HEPARIN BOLUS PRN PRN Reason: HEPARIN BOLUS PROTOCOL Last Admin: 12/23/16 07:26 Dose: 4,900 units Heparin Sodium/Dextrose (Heparin Drip 25,000 Units(*)) 25,000 units in 500 mls @ 0 mls/hr IVPB .(INITIAL RATE) [facility]; Per Protocol PRN Reason: Protocol Last Admin: 12/23/16 07:13 Dose: 21 mls/hr Melatonin (Melatonin (Nf)) 3 mg PO BEDTIME PRN; Protocol PRN Reason: Sleep Metoprolol Tartrate (Lopressor Tab*) 25 mg PO BID [facility] Last Admin: 12/23/16 07:30 Dose: 25 mg Omeprazole (Prilosec Cap*) 20 mg PO DAILY@0600 [facility] Last Admin: 12/23/16 05:04 Dose: 20 mg Ondansetron HCl (Zofran Inj*) 4 mg IV Q6H PRN PRN Reason: NAUSEA Potassium Chloride (Klor Con Er Tab*) 20 meq PO DAILY [facility] Last Admin: 12/23/16 07:28 Dose: 20 meq Vital Signs 12/23/16 12/23/16 12/23/16 03:30 03:34 03:38 Temperature 97.7 F Pulse Rate 109 65 121 Respiratory 32 30 22 Rate Blood Pressure 99/73 101/67 105/75 (mmHg) O2 Sat by Pulse 98 98 100 Oximetry 12/23/16 12/23/16 12/23/16 03:49 07:10 07:32 Temperature 97.7 F 97.9 F 97.6 F Pulse Rate 131 37 Respiratory 18 16 Rate Blood Pressure 107/57 103/75 (mmHg) O2 Sat by Pulse 97 94 Oximetry 12/23/16 12/23/16 12/23/16 07:57 09:33 11:28 Temperature 97.6 F Pulse Rate 114 Respiratory 18 28 Rate Blood Pressure 106/60 (mmHg) O2 Sat by Pulse 96 100 Oximetry Oxygen Devices in Use Now: Nasal Cannula - at 2 L Appearance: 86 yo M, pale, appears exhausted, AAOx3 Eyes: No Scleral Icterus, PERRLA Ears/Nose/Mouth/Throat: NL Teeth, Lips, Gums, Mucous Membranes Moist Neck: NL Appearance and Movements; NL JVP, Trachea Midline Respiratory: Symmetrical Chest Expansion and Respiratory Effort, - - rales at b/ l bases Cardiovascular: - - irregular, 3/6 SIDDHARTH at apex Abdominal: NL Sounds; No Tenderness; No Distention, No Hepatosplenomegaly Lymphatic: No Cervical Adenopathy Extremities: No Clubbing, Cyanosis, - - trace pedeal edema b/l Skin: No Rash or Ulcers, No Nodules or Sclerosis Neurological: Alert and Oriented x 3, NL Muscle Strength and Tone Result Diagrams: 12/23/16 00:43 12/23/16 00:43 Additional Lab and Data: Lab Results 12/23/16 12/23/16 12/23/16 Range/Units 00:43 00:43 00:43 WBC 8.4 (3.5-10.8) 10^3/ul RBC 4.06 (4.0-5.4) 10^6/ul Hgb 12.6 L (14.0-18.0) g/dl Hct 38 L (42-52) % MCV 94 (80-94) fL MCH 31 (27-31) pg MCHC 33 (31-36) g/dl RDW 15 (10.5-15) % Plt Count 130 L (150-450) 10^3/ul MPV 10 (7.4-10.4) um3 Neut % (Auto) 78.4 (38-83) % Lymph % (Auto) 13.6 L (25-47) % [place] % (Auto) 6.9 (1-9) % Eos % (Auto) 0.4 (0-6) % Baso % (Auto) 0.7 (0-2) % Absolute Neuts (auto) 6.6 (1.5-7.7) 10^3/ul Absolute Lymphs (auto) 1.1 (1.0-4.8) 10^3/ul Absolute Monos (auto) 0.6 (0-0.8) 10^3/ul Absolute Eos (auto) 0 (0-0.6) 10^3/ul Absolute Basos (auto) 0.1 (0-0.2) 10^3/ul Absolute Nucleated RBC 0.01 10^3/ul Nucleated RBC % 0.1 INR (Anticoag Therapy) 1.29 H (0.89-1.11) APTT 34.0 (26.0-36.3) seconds D-Dimer, Quantitative 237 H (Less Than 230) ng/mL Sodium 138 (133-145) mmol/L Potassium 3.8 (3.5-5.0) mmol/L Chloride 104 (101-111) mmol/L Carbon Dioxide 24 (22-32) mmol/L Anion Gap 10 (2-11) mmol/L BUN 21 (6-24) mg/dL Creatinine 0.98 (0.67-1.17) mg/dL Est GFR ( Amer) 92.8 (>60) Est GFR (Non-Af Amer) 72.2 (>60) BUN/Creatinine Ratio 21.4 H (8-20) Glucose 140 H (70-100) mg/dL Lactic Acid (0.5-2.0) mmol/L Calcium 8.6 (8.6-10.3) mg/dL Magnesium 2.0 (1.9-2.7) mg/dL Total Bilirubin 1.20 H (0.2-1.0) mg/dL AST 15 (13-39) U/L ALT 18 (7-52) U/L Alkaline Phosphatase 128 H (34-104) U/L Total Creatine Kinase 95 (10-223) U/L CK-MB (CK-2) 13.5 H (0.6-6.3) ng/mL Troponin I 0.47 H* (<0.04) ng/mL C-Reactive Protein 4.37 (< 5.00) mg/L B-Natriuretic Peptide ( - 100) pg/mL Total Protein 6.7 (6.4-8.9) g/dL Albumin 3.8 (3.2-5.2) g/dL Globulin 2.9 (2-4) g/dL Albumin/Globulin Ratio 1.3 (1-3) Lipase 30 (11.0-82.0) U/L TSH 9.87 H (0.34-5.60) mcIU/mL 12/23/16 12/23/16 12/23/16 Range/Units 00:43 00:43 02:00 WBC (3.5-10.8) 10^3/ul RBC (4.0-5.4) 10^6/ul Hgb (14.0-18.0) g/dl Hct (42-52) % MCV (80-94) fL MCH (27-31) pg MCHC (31-36) g/dl RDW (10.5-15) % Plt Count (150-450) 10^3/ul MPV (7.4-10.4) um3 Neut % (Auto) (38-83) % Lymph % (Auto) (25-47) % [place] % (Auto) (1-9) % Eos % (Auto) (0-6) % Baso % (Auto) (0-2) % Absolute Neuts (auto) (1.5-7.7) 10^3/ul Absolute Lymphs (auto) (1.0-4.8) 10^3/ul Absolute Monos (auto) (0-0.8) 10^3/ul Absolute Eos (auto) (0-0.6) 10^3/ul Absolute Basos (auto) (0-0.2) 10^3/ul Absolute Nucleated RBC 10^3/ul Nucleated RBC % INR (Anticoag Therapy) (0.89-1.11) APTT (26.0-36.3) seconds D-Dimer, Quantitative (Less Than 230) ng/mL Sodium (133-145) mmol/L Potassium (3.5-5.0) mmol/L Chloride (101-111) mmol/L Carbon Dioxide (22-32) mmol/L Anion Gap (2-11) mmol/L BUN (6-24) mg/dL Creatinine (0.67-1.17) mg/dL Est GFR ( Amer) (>60) Est GFR (Non-Af Amer) (>60) BUN/Creatinine Ratio (8-20) Glucose (70-100) mg/dL Lactic Acid 2.6 H* (0.5-2.0) mmol/L Calcium (8.6-10.3) mg/dL Magnesium (1.9-2.7) mg/dL Total Bilirubin (0.2-1.0) mg/dL AST (13-39) U/L ALT (7-52) U/L Alkaline Phosphatase (34-104) U/L Total Creatine Kinase (10-223) U/L CK-MB (CK-2) (0.6-6.3) ng/mL Troponin I 0.90 H* (<0.04) ng/mL C-Reactive Protein (< 5.00) mg/L B-Natriuretic Peptide 665 H ( - 100) pg/mL Total Protein (6.4-8.9) g/dL Albumin (3.2-5.2) g/dL Globulin (2-4) g/dL Albumin/Globulin Ratio (1-3) Lipase (11.0-82.0) U/L TSH (0.34-5.60) mcIU/mL Assess/Plan/Problems-Billing Assessment: 86 yo M with h/o A. fib (on Pradaxa, S/p RIKI(with perivalvular leak ), severe MR and TR on Echo on 12/22/16 readmitted on the same day he was discharged for systolic CHF with NSTEMI - Patient Problems (1) NSTEMI (non-ST elevated myocardial infarction) Comment: cont heparin gtt/ASA/BB/statin appreciate cardology consult (2) Acute systolic CHF (congestive heart failure) Comment: severe Due to MR pt's BP ahd been on the low side, making diuresis difficult. Will cont PO Lasix and add on Lasix IV with close observation Pt is avare that he would need mitral valve replaced at some point, but that he is not a candidate for surgery right now. Although palliative care could be involved , it does not appear that pt and are ready for the discussion. (3) Afib Comment: fairly controlled. cont BB and Cardizem (4) Anxiety Comment: cont Lorazepam prn (5) Hypothyroidism Comment: TSH slightly elevated, but in the face of NSTEMI and CHF will not change the dose (6) DVT prophylaxis Comment: heparin gtt
[2016-12-23] MEDS: Atorvastatin* 40 MG TAB PO SCH (20:23)
[2016-12-23] MEDS: LORazepam TAB(*) 0.5 MG PO PRN (22:29)
--- NOTE | 2016-12-24 04:03 | CONS ---
CC: Dr. Sheikh; Dr. Jean CARDIOLOGY CONSULTATION: DATE OF CONSULT: 12/23/16 REFERRAL PHYSICIAN: Dr. Jennifer Hernandez. REASON FOR CARDIOLOGY CONSULTATION: The patient with history of TAVR, CAD, status post CABG and severe ischemic cardiomyopathy, readmitted with systolic volume overload and non-Q wave VT. HISTORY OF PRESENT ILLNESS: Mr. Wiggins is a pleasant 87-year-old gentleman who is accompanied by his on the telemetry floor where I am consulting on him. On 12/15/16, he and his left to attend a wedding for their grandson in [facility] and then traveled to [place] and then back to [place] by . They did eat at restaurants with some salt indiscretion. They returned to [place] on 12/20/16 and they estimated they drove for 500 miles total. On at 4 p.m., the patient felt short of breath and they called their primary care physician's office, who recommended he be seen at [facility], who referred [place] [facility] [place]. There, the patient was felt to have congestive heart failure and was admitted to [facility] where he received IV Lasix and was discharged home yesterday. The patient states that when he returned home yesterday, he became extremely short of breath, which was new for him at about 6 p.m. and so he came back to [facility], where he was found to have systolic volume overload and non- Q wave VT. Peak troponin thus far of 1.99. Interestingly, the patient did not have any chest pain. He has also not had any peripheral edema and he has been compliant with his medications. PAST MEDICAL HISTORY: Significant for coronary artery disease and he has had five- vessel bypass surgery at [facility] 10 years ago. Four years ago, he had TAVR I believe for severe done as part of an experiential protocol in [place] and while the TAVR has been functioning normally, he is known to have at least mild perivalvular leak. He has severe ischemic cardiomyopathy. He has chronic atrial fibrillation with left bundle branch block, hypothyroidism, esophageal stricture, status post dilatation, possible undiagnosed dementia, anxiety, depression, BPH, GERD. The patient had a transthoracic echocardiogram completed yesterday, which showed severely depressed left ventricular ejection fraction of 20% to 25%, mild concentric left ventricular hypertrophy, vbchdyaq-nk-atpytp mitral regurgitation, severe left atrial dilatation, onmohhhd-zw-aciesb tricuspid regurgitation with hkudpgui-rg-vgjhnz pulmonary hypertension. Bioprosthetic valve seemed to be working reasonably well; however, there were up to 2 areas of perivalvular leak, moderate ND, mild dilatation of the ascending aorta. When compared to prior echocardiogram completed 01/11/15, the degree of TR and MR had increased from prior moderate and degree of pulmonary hypertension increased from prior mild. Per the patient's , they were seen by his TAVR lithographed plate inspector about a month ago and was told that the TAVR function is stable. The patient follows with my partner with Dr. Obi Jean of [facility]. OUTPATIENT MEDICATIONS: With which he states he has been compliant include: 1. Lipitor 40 mg once a day. 2. Aspirin 81 mg once a day. 3. Lasix 20 mg p.o. every day (again he had received a total of 60 mg of IV Lasix while he was admitted to [facility] yesterday and the day prior ). 4. Omeprazole 20 mg once a day. 5. Levothyroxine 25 mcg once a day. 6. Zetia 10 mg once a day. 7. Diltiazem 240 mg once a day. 8. Avodart 0.5 mg once a day. 9. Pradaxa 150 mg p.o. b.i.d. 10. Finasteride 5 mg p.o. every day. 11. Potassium chloride 20 mEq once a day. 12. Ativan p.r.n. 0.5 mg. 13. Lopressor 25 mg p.o. b.i.d. 14. Wellbutrin 150 mg p.o. every day. 15. Nitroglycerin sublingual p.r.n. ALLERGIES TO MEDICATIONS: None. He denies shrimp or seafood allergy. FAMILY HISTORY/REVIEW OF SYSTEMS: Unable to obtain as the patient became short of breath even while talking and thus his history provision ability was limited. 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 He does not smoke cigarettes, abuse alcohol. No use of illicit drug. He has been for 63 years. He does not participate in regular exercise because of general infirmity. PHYSICAL EXAM: Height 5 feet 9 inches, weight 151 pounds, temperature 97.6 degrees Fahrenheit, O2 saturation 100% currently on supplemental oxygen, blood pressure 106/60, pulse on telemetry average heart rate is 89 beats per minute with atrial fibrillation. On general exam, he is a sallow, chronically ill- appearing gentleman, in no acute distress. HEENT: Shows the cranium is normocephalic and atraumatic. He has moist mucosal membranes. Neck: Veins revealed JVP of 12 cm while reclining on 30 degrees. No carotid bruits visible. Skin: Warm and perfused. Mild kyphoscoliosis on recumbent back exam. Lungs: Reveal rales bilaterally at the bases. No wheezes. Cardiac Exam : S1, S2. Irregular rate controlled. 2/6 holosystolic murmur heard with some radiation towards his left axilla. There is no rub, no gallop. PMI is diffuse. Abdomen: Soft, nondistended, appears benign. Extremities: With no more than trivial peripheral edema. Pulses appeared grossly intact. DIAGNOSTIC STUDIES/LAB DATA: A 12-lead EKG is reviewed from 12/23/16 at 7:04 a.m., which shows atrial fibrillation at heart rate of 144 beats per minute with left bundle branch block and diffuse ST-T wave changes. This appears similar to prior EKGs he has had done. White blood cell count 8.4, hematocrit 38, platelet count 130. INR 1.29. Sodium 138, potassium 3.8, chloride 104, bicarbonate 24, BUN 21, creatinine 0.98. ALT 18. Troponin was 0.90, followed by 1.71, followed by 1.99. TSH 9.87. CTA of the chest was done, which excluded pulmonary embolus and did show interstitial edema. IMPRESSION: Mr. Wiggins is a pleasant 86-year-old gentleman with history of TAVR with severe chronic ischemic cardiomyopathy, gzzrggkc-kw-lecehn mitral regurgitation with cpmuxjal-tg-qewfsj tricuspid regurgitation, moderate-to- severe pulmonary hypertension, recently admitted with shortness of breath and despite diuresis, he has been readmitted with systolic volume overload with coexistent rapid ventricular rate with his chronic atrial fibrillation and non- Q wave myocardial infarction (latter likely demand mediated). He seems to have class 3-4 symptoms. Invasive strategy does not appear indicated at this time and in fact risks appear to outweigh benefits in the setting of his chronic severe ischemic cardiomyopathy and multivalvular disease. While his TAVR seems reasonably functioning, he is known to have perivalvular leak perhaps up to two regions of the TAVR itself. I have discussed this in detail with the patient, his as well as subsequently with the patient's usual lithographed plate inspector, Dr. Obi Jean and appears most appropriate for medical therapy. RECOMMENDATIONS: 1. We would recommend completing 48 to 72 hours of intravenous heparin given recent ACS and watch his heart rate while continuing the beta-beth and calcium channel beth. At this time, his heart rate is fairly well controlled by review of telemetry with average heart rate over the past few hours of 89 beats per minute. 2. We would recommend aggressively diuresing with Lasix IV while watching renal function and blood pressure closely. 3. Continue aspirin, beta-beth, calcium channel beth, statin. The patient is not a candidate for ROWAN inhibitor nor ARB (including Entresto) nor Aldactone due to low blood pressure and need to rate control and diurese. 4. The patient should follow up with his usual lithographed plate inspector, Dr. Jean, again with whom I have discussed the case after his discharge. Perhaps consideration will be given to upgrade to biventricular pacemaker and/or MitraClip if he becomes more stable although overall it seems that the patient may be tending towards more conservative therapy. In his current clinical condition, these proposed procedures would confer increased risk to benefit ratio. 5. Other management as per Dr. Hernandez including regarding elevated TSH with whom I have discussed the case. 6. The above was discussed in detail with the patient and his . They appear to be in agreement of these recommendations. Many thanks for this current cardiac consultation opportunity. Please do not hesitate to contact me if you have any questions or concerns during the patient' s cardiovascular consultative care. [id number]/CPS #: [id number] MTDD
[2016-12-24 04:18] LABS: Hematocrit 37 % (42-52); Hemoglobin 12.2 g/dl (14.0-18.0); Mean Corpuscular HGB Conc 33 g/dl (31-36); Mean Corpuscular Hemoglobin 31 pg (27-31); Mean Corpuscular Volume 94 fL (80-94); Mean Platelet Volume 10 um3 (7.4-10.4); Red Blood Count 3.98 10^6/ul (4.0-5.4); Red Cell Distribution Width 15 % (10.5-15); White Blood Count 7.2 10^3/ul (3.5-10.8)
[2016-12-24 04:33] LABS: BUN/Creatinine Ratio 25.9 (8-20); Calcium 8.7 mg/dL (8.6-10.3); EGFR African American 76.4 (>60); EGFR Non-African American 59.4 (>60); HDL Cholesterol 30.7 mg/dL; Potassium 4.5 mmol/L (3.5-5.0)
[2016-12-24] MEDS: Levothyroxine TAB* 75 MCG TAB PO SCH (05:32)
[2016-12-24] MEDS: Omeprazole CAP* 20 MG PO SCH (05:33)
[2016-12-24] MEDS ORDERED: Furosemide IV* 10 MG/ML 2 ML VIAL (20 MG) IV ONE (08:04)
[2016-12-24] MEDS: Furosemide TAB* 20 MG PO SCH (09:18)
[2016-12-24] MEDS: LORazepam TAB(*) 0.5 MG PO PRN ×2 (09:19→13:45)
[2016-12-24] MEDS: Diltiazem CD CAP* 240 MG PO SCH (09:22)
[2016-12-24] MEDS: Metoprolol Tartrate TAB* 25 MG PO SCH ×2 (09:23→21:49)
[2016-12-24] MEDS: Aspirin Low Dose CHEW TAB* 81 MG PO SCH (09:23)
[2016-12-24] MEDS: Finasteride TAB* 5 MG PO SCH (09:24)
[2016-12-24] MEDS: buPROPion TAB* 75 MG PO SCH (09:24)
[2016-12-24] MEDS: Potassium Chlor TAB* 20 MEQ TAB.ER PO SCH (09:25)
[2016-12-24] MEDS: Docusate CAP* 100 MG PO SCH ×2 (09:25→21:49)
[2016-12-24] MEDS: Ezetimibe TAB* 10 MG PO SCH (09:27)
[2016-12-24] MEDS ORDERED: Morphine ORAL.SOLN 10 mg* 2 MG/ML UDC 5 ml PO PRN (14:00)
--- NOTE | 2016-12-24 14:03 | PN ---
Subjective Date of Service: 12/24/16 Interval History: Pt is mildly confused this AM. Picking at things and appearing not to be able to find a comfortable posisition. Also intermittently hyperventilating, although 02 sat is 96-99% on current 02. spoke with and two sons present in room about the need of stabilization of CHF prior to any eval for mitral valve surgery. We also discussed possible palliative care consult and hospice and family was not adverse to the idea. Use of morphine for comfort and SOB was also discussed and family agreed to starting morphine especially at night Objective Active Medications: Acetaminophen (Tylenol Tab*) 650 mg PO Q6H PRN PRN Reason: FEVER/PAIN Aspirin (Aspirin Low Dose Tab*) 81 mg PO DAILY [facility] Last Admin: 12/24/16 09:23 Dose: 81 mg Atorvastatin Calcium (Lipitor*) 40 mg PO 2100 [facility] Last Admin: 12/23/16 20:23 Dose: 40 mg Bupropion HCl (Wellbutrin Tab*) 150 mg PO DAILY [facility] Last Admin: 12/24/16 09:24 Dose: 150 mg Diltiazem HCl (Cardizem Cd Cap*) 240 mg PO DAILY [facility] Last Admin: 12/24/16 09:22 Dose: 240 mg Docusate Sodium (Colace Cap*) 200 mg PO BID [facility] Last Admin: 12/24/16 09:25 Dose: 200 mg Ezetimibe (Zetia Tab*) 10 mg PO DAILY [facility] Last Admin: 12/24/16 09:27 Dose: 10 mg Finasteride (Proscar Tab*) 5 mg PO DAILY [facility] Last Admin: 12/24/16 09:24 Dose: 5 mg Furosemide (Lasix Tab*) 20 mg PO DAILY [facility] Last Admin: 12/24/16 09:18 Dose: 20 mg Heparin Sodium (Porcine) (Heparin Vial(*)) 0 units IV .PER HEPARIN BOLUS PRN PRN Reason: HEPARIN BOLUS PROTOCOL Last Admin: 12/23/16 07:26 Dose: 4,900 units Heparin Sodium/Dextrose (Heparin Drip 25,000 Units(*)) 25,000 units in 500 mls @ 0 mls/hr IVPB .(INITIAL RATE) [facility]; Per Protocol PRN Reason: Protocol Last Admin: 12/23/16 07:13 Dose: 21 mls/hr Levothyroxine Sodium (Synthroid Tab*) 75 mcg PO 0600 [facility] Last Admin: 12/24/16 05:32 Dose: 75 mcg Lorazepam (Ativan Tab(*)) 0.5 mg PO TID PRN PRN Reason: ANXIETY Last Admin: 12/24/16 13:45 Dose: 0.5 mg Melatonin (Melatonin (Nf)) 3 mg PO BEDTIME PRN; Protocol PRN Reason: Sleep Last Admin: 12/23/16 22:29 Dose: 3 mg Metoprolol Tartrate (Lopressor Tab*) 25 mg PO BID [facility] Last Admin: 12/24/16 09:23 Dose: 25 mg Omeprazole (Prilosec Cap*) 20 mg PO DAILY@0600 [facility] Last Admin: 12/24/16 05:33 Dose: 20 mg Ondansetron HCl (Zofran Inj*) 4 mg IV Q6H PRN PRN Reason: NAUSEA Potassium Chloride (Klor Con Er Tab*) 20 meq PO DAILY [facility] Last Admin: 12/24/16 09:25 Dose: 20 meq Vital Signs 12/23/16 12/23/16 12/23/16 15:26 20:00 20:20 Temperature 96.5 F 97.3 F Pulse Rate 98 89 Respiratory 28 29 16 Rate Blood Pressure 90/64 98/64 (mmHg) O2 Sat by Pulse 95 98 Oximetry 12/23/16 12/23/16 12/24/16 22:29 22:58 00:29 Temperature 97.7 F Pulse Rate 71 Respiratory 24 16 19 Rate Blood Pressure 90/55 (mmHg) O2 Sat by Pulse 98 Oximetry 12/24/16 12/24/16 12/24/16 04:24 07:34 08:00 Temperature 97.1 F 97.4 F Pulse Rate 72 78 Respiratory 16 20 24 Rate Blood Pressure 105/67 110/73 (mmHg) O2 Sat by Pulse 100 95 Oximetry 12/24/16 12/24/16 12/24/16 09:19 11:19 12:02 Temperature Pulse Rate 93 Respiratory 24 20 24 Rate Blood Pressure 91/62 (mmHg) O2 Sat by Pulse 100 Oximetry 12/24/16 13:45 Temperature Pulse Rate Respiratory 28 Rate Blood Pressure (mmHg) O2 Sat by Pulse Oximetry Oxygen Devices in Use Now: Nasal Cannula - at 2 L Appearance: 86 yo M, mildly confused, but able to be reoriented, AAox2 Eyes: No Scleral Icterus, PERRLA Ears/Nose/Mouth/Throat: NL Teeth, Lips, Gums, Mucous Membranes Moist Neck: NL Appearance and Movements; NL JVP, Trachea Midline Respiratory: Symmetrical Chest Expansion and Respiratory Effort, - - decreased breath sounds and crackles at b/l bases Cardiovascular: - - irregular, 3/6 SIDDHARTH Abdominal: NL Sounds; No Tenderness; No Distention, No Hepatosplenomegaly Lymphatic: No Cervical Adenopathy Extremities: No Edema, No Clubbing, Cyanosis Skin: No Rash or Ulcers, No Nodules or Sclerosis Neurological: NL Muscle Strength and Tone Result Diagrams: 12/24/16 04:08 12/24/16 04:08 Additional Lab and Data: Lab Results 12/23/16 12/23/16 12/23/16 Range/Units 00:43 00:43 00:43 WBC 8.4 (3.5-10.8) 10^3/ul RBC 4.06 (4.0-5.4) 10^6/ul Hgb 12.6 L (14.0-18.0) g/dl Hct 38 L (42-52) % MCV 94 (80-94) fL MCH 31 (27-31) pg MCHC 33 (31-36) g/dl RDW 15 (10.5-15) % Plt Count 130 L (150-450) 10^3/ul MPV 10 (7.4-10.4) um3 Neut % (Auto) 78.4 (38-83) % Lymph % (Auto) 13.6 L (25-47) % Estill % (Auto) 6.9 (1-9) % Eos % (Auto) 0.4 (0-6) % Baso % (Auto) 0.7 (0-2) % Absolute Neuts (auto) 6.6 (1.5-7.7) 10^3/ul Absolute Lymphs (auto) 1.1 (1.0-4.8) 10^3/ul Absolute Monos (auto) 0.6 (0-0.8) 10^3/ul Absolute Eos (auto) 0 (0-0.6) 10^3/ul Absolute Basos (auto) 0.1 (0-0.2) 10^3/ul Absolute Nucleated RBC 0.01 10^3/ul Nucleated RBC % 0.1 INR (Anticoag Therapy) 1.29 H (0.89-1.11) APTT 34.0 (26.0-36.3) seconds D-Dimer, Quantitative 237 H (Less Than 230) ng/mL Sodium 138 (133-145) mmol/L Potassium 3.8 (3.5-5.0) mmol/L Chloride 104 (101-111) mmol/L Carbon Dioxide 24 (22-32) mmol/L Anion Gap 10 (2-11) mmol/L BUN 21 (6-24) mg/dL Creatinine 0.98 (0.67-1.17) mg/dL Est GFR ( Amer) 92.8 (>60) Est GFR (Non-Af Amer) 72.2 (>60) BUN/Creatinine Ratio 21.4 H (8-20) Glucose 140 H (70-100) mg/dL Lactic Acid (0.5-2.0) mmol/L Calcium 8.6 (8.6-10.3) mg/dL Magnesium 2.0 (1.9-2.7) mg/dL Total Bilirubin 1.20 H (0.2-1.0) mg/dL AST 15 (13-39) U/L ALT 18 (7-52) U/L Alkaline Phosphatase 128 H (34-104) U/L Total Creatine Kinase 95 (10-223) U/L CK-MB (CK-2) 13.5 H (0.6-6.3) ng/mL Troponin I 0.47 H* (<0.04) ng/mL C-Reactive Protein 4.37 (< 5.00) mg/L B-Natriuretic Peptide ( - 100) pg/mL Total Protein 6.7 (6.4-8.9) g/dL Albumin 3.8 (3.2-5.2) g/dL Globulin 2.9 (2-4) g/dL Albumin/Globulin Ratio 1.3 (1-3) Lipase 30 (11.0-82.0) U/L TSH 9.87 H (0.34-5.60) mcIU/mL 12/23/16 12/23/16 12/23/16 Range/Units 00:43 00:43 02:00 WBC (3.5-10.8) 10^3/ul RBC (4.0-5.4) 10^6/ul Hgb (14.0-18.0) g/dl Hct (42-52) % MCV (80-94) fL MCH (27-31) pg MCHC (31-36) g/dl RDW (10.5-15) % Plt Count (150-450) 10^3/ul MPV (7.4-10.4) um3 Neut % (Auto) (38-83) % Lymph % (Auto) (25-47) % Estill % (Auto) (1-9) % Eos % (Auto) (0-6) % Baso % (Auto) (0-2) % Absolute Neuts (auto) (1.5-7.7) 10^3/ul Absolute Lymphs (auto) (1.0-4.8) 10^3/ul Absolute Monos (auto) (0-0.8) 10^3/ul Absolute Eos (auto) (0-0.6) 10^3/ul Absolute Basos (auto) (0-0.2) 10^3/ul Absolute Nucleated RBC 10^3/ul Nucleated RBC % INR (Anticoag Therapy) (0.89-1.11) APTT (26.0-36.3) seconds D-Dimer, Quantitative (Less Than 230) ng/mL Sodium (133-145) mmol/L Potassium (3.5-5.0) mmol/L Chloride (101-111) mmol/L Carbon Dioxide (22-32) mmol/L Anion Gap (2-11) mmol/L BUN (6-24) mg/dL Creatinine (0.67-1.17) mg/dL Est GFR ( Amer) (>60) Est GFR (Non-Af Amer) (>60) BUN/Creatinine Ratio (8-20) Glucose (70-100) mg/dL Lactic Acid 2.6 H* (0.5-2.0) mmol/L Calcium (8.6-10.3) mg/dL Magnesium (1.9-2.7) mg/dL Total Bilirubin (0.2-1.0) mg/dL AST (13-39) U/L ALT (7-52) U/L Alkaline Phosphatase (34-104) U/L Total Creatine Kinase (10-223) U/L CK-MB (CK-2) (0.6-6.3) ng/mL Troponin I 0.90 H* (<0.04) ng/mL C-Reactive Protein (< 5.00) mg/L B-Natriuretic Peptide 665 H ( - 100) pg/mL Total Protein (6.4-8.9) g/dL Albumin (3.2-5.2) g/dL Globulin (2-4) g/dL Albumin/Globulin Ratio (1-3) Lipase (11.0-82.0) U/L TSH (0.34-5.60) mcIU/mL Assess/Plan/Problems-Billing Assessment: 86 yo M with h/o A. fib (on Pradaxa, S/p RIKI(with perivalvular leak ), severe MR and TR on Echo on 12/22/16 readmitted on the same day he was discharged for systolic CHF with NSTEMI - Patient Problems (1) NSTEMI (non-ST elevated myocardial infarction) Comment: cont heparin gtt/ASA/BB/statin appreciate cardiology consult (2) Acute systolic CHF (congestive heart failure) Comment: severe Due to MR pt's BP had been on the low side, making diuresis difficult. Will cont PO Lasix and add on Lasix IV with close observation Pt is avare that he would need mitral valve replaced at some point, but that he is not a candidate for surgery right now. Palliative care will be asked to see pt in consult. Will start morphine for SOB/comfort (3) Afib Comment: fairly controlled. cont BB and Cardizem (4) Anxiety Comment: cont Lorazepam prn (5) Hypothyroidism Comment: TSH slightly elevated, but in the face of NSTEMI and CHF will not change the dose (6) DVT prophylaxis Comment: heparin gtt Status and Disposition: inpatient
[2016-12-24] MEDS: Heparin DRIP 25,000 UNITS(*) 25,000 UNITS/500 ML BAG IVPB SCH (19:04)
[2016-12-24] MEDS: Atorvastatin* 40 MG TAB PO SCH (21:49)
[2016-12-25] MEDS: LORazepam TAB(*) 0.5 MG PO PRN ×3 (00:38→21:34)
[2016-12-25] MEDS: Levothyroxine TAB* 75 MCG TAB PO SCH (05:39)
[2016-12-25] MEDS: Omeprazole CAP* 20 MG PO SCH (05:39)
[2016-12-25 06:08] LABS: Hematocrit 36 % (42-52); Mean Corpuscular HGB Conc 33 g/dl (31-36); Mean Corpuscular Hemoglobin 31 pg (27-31); Mean Corpuscular Volume 94 fL (80-94); Mean Platelet Volume 11 um3 (7.4-10.4); Red Blood Count 3.86 10^6/ul (4.0-5.4); Red Cell Distribution Width 15 % (10.5-15); White Blood Count 9.6 10^3/ul (3.5-10.8)
[2016-12-25 06:27] LABS: BUN/Creatinine Ratio 33.3 (8-20); Calcium 8.5 mg/dL (8.6-10.3); EGFR African American 71.4 (>60); EGFR Non-African American 55.5 (>60); Potassium 4.5 mmol/L (3.5-5.0)
[2016-12-25] MEDS ORDERED: Furosemide IV* 10 MG/ML 2 ML VIAL (20 MG) IV ONE (10:35)
[2016-12-25] MEDS: Aspirin Low Dose CHEW TAB* 81 MG PO SCH (10:36)
[2016-12-25] MEDS: Docusate CAP* 100 MG PO SCH ×2 (10:37→21:34)
[2016-12-25] MEDS: Metoprolol Tartrate TAB* 25 MG PO SCH ×2 (10:38→21:34)
[2016-12-25] MEDS: Diltiazem CD CAP* 240 MG PO SCH (10:39)
[2016-12-25] MEDS: buPROPion TAB* 75 MG PO SCH (10:39)
--- NOTE | 2016-12-25 10:39 | PN ---
Subjective Date of Service: 12/25/16 Interval History: pt is mildy confused. No new complaints. SOB improving, but feels very weak and "has no will" to get up from bed Objective Active Medications: Acetaminophen (Tylenol Tab*) 650 mg PO Q6H PRN PRN Reason: FEVER/PAIN Aspirin (Aspirin Low Dose Tab*) 81 mg PO DAILY [facility] Last Admin: 12/24/16 09:23 Dose: 81 mg Atorvastatin Calcium (Lipitor*) 40 mg PO 2100 [facility] Last Admin: 12/24/16 21:49 Dose: 40 mg Bupropion HCl (Wellbutrin Tab*) 150 mg PO DAILY [facility] Last Admin: 12/24/16 09:24 Dose: 150 mg Diltiazem HCl (Cardizem Cd Cap*) 240 mg PO DAILY [facility] Last Admin: 12/24/16 09:22 Dose: 240 mg Docusate Sodium (Colace Cap*) 200 mg PO BID [facility] Last Admin: 12/24/16 21:49 Dose: 200 mg Ezetimibe (Zetia Tab*) 10 mg PO DAILY [facility] Last Admin: 12/24/16 09:27 Dose: 10 mg Ferrous Sulfate (Ferrous Sulfate Tab*) 325 mg PO DAILY [facility] Finasteride (Proscar Tab*) 5 mg PO DAILY [facility] Last Admin: 12/24/16 09:24 Dose: 5 mg Furosemide (Lasix Tab*) 20 mg PO DAILY [facility] Last Admin: 12/24/16 09:18 Dose: 20 mg Furosemide (Lasix Iv*) 20 mg IV ONCE ONE Stop: 12/25/16 10:36 Heparin Sodium (Porcine) (Heparin Vial(*)) 0 units IV .PER HEPARIN BOLUS PRN PRN Reason: HEPARIN BOLUS PROTOCOL Last Admin: 12/23/16 07:26 Dose: 4,900 units Heparin Sodium/Dextrose (Heparin Drip 25,000 Units(*)) 25,000 units in 500 mls @ 0 mls/hr IVPB .(INITIAL RATE) [facility]; Per Protocol PRN Reason: Protocol Last Admin: 12/24/16 19:04 Dose: 10 mls/hr Levothyroxine Sodium (Synthroid Tab*) 75 mcg PO 0600 [facility] Last Admin: 12/25/16 05:39 Dose: 75 mcg Lorazepam (Ativan Tab(*)) 0.5 mg PO Q4H PRN PRN Reason: ANXIETY Last Admin: 12/25/16 00:38 Dose: 0.5 mg Melatonin (Melatonin (Nf)) 3 mg PO BEDTIME PRN; Protocol PRN Reason: Sleep Last Admin: 12/23/16 22:29 Dose: 3 mg Metoprolol Tartrate (Lopressor Tab*) 25 mg PO BID [facility] Last Admin: 12/24/16 21:49 Dose: 25 mg Morphine Sulfate (Morphine Oral.Soln 10 Mg*) 5 mg PO Q4H PRN PRN Reason: SOB/WHEEZING Last Admin: 12/24/16 22:51 Dose: 5 mg Omeprazole (Prilosec Cap*) 20 mg PO DAILY@0600 [facility] Last Admin: 12/25/16 05:39 Dose: 20 mg Ondansetron HCl (Zofran Inj*) 4 mg IV Q6H PRN PRN Reason: NAUSEA Potassium Chloride (Klor Con Er Tab*) 20 meq PO DAILY [facility] Last Admin: 12/24/16 09:25 Dose: 20 meq Vital Signs 12/24/16 12/24/16 12/24/16 11:19 12:02 13:45 Temperature Pulse Rate 93 Respiratory 20 24 28 Rate Blood Pressure 91/62 (mmHg) O2 Sat by Pulse 100 Oximetry 12/24/16 12/24/16 12/24/16 15:45 16:23 19:28 Temperature 97.8 F 98.3 F Pulse Rate 92 80 Respiratory 22 18 Rate Blood Pressure 103/64 95/56 (mmHg) O2 Sat by Pulse 97 99 Oximetry 12/24/16 12/24/16 12/25/16 20:00 22:51 00:24 Temperature 97.2 F Pulse Rate 85 Respiratory 30 30 40 Rate Blood Pressure 95/54 (mmHg) O2 Sat by Pulse 99 Oximetry 12/25/16 12/25/16 12/25/16 00:38 04:21 07:00 Temperature 98.0 F Pulse Rate 84 Respiratory 40 16 28 Rate Blood Pressure 103/53 (mmHg) O2 Sat by Pulse 94 Oximetry 12/25/16 12/25/16 07:38 08:19 Temperature 97.4 F Pulse Rate 112 Respiratory 24 Rate Blood Pressure 102/59 (mmHg) O2 Sat by Pulse 94 92 Oximetry Oxygen Devices in Use Now: Nasal Cannula - at 2 L Appearance: 86 yo M in nAD, aAOx2, appears very weak/tired/pale, chronically ill Eyes: No Scleral Icterus, PERRLA Ears/Nose/Mouth/Throat: NL Teeth, Lips, Gums, Mucous Membranes Moist Neck: NL Appearance and Movements; NL JVP, Trachea Midline Respiratory: Symmetrical Chest Expansion and Respiratory Effort, - - crackles at b/l bases Cardiovascular: - - irregular, 3/6 SIDDHARTH at apex Abdominal: NL Sounds; No Tenderness; No Distention, No Hepatosplenomegaly Lymphatic: No Cervical Adenopathy Extremities: No Edema, No Clubbing, Cyanosis Skin: No Rash or Ulcers, No Nodules or Sclerosis Neurological: NL Muscle Strength and Tone Result Diagrams: 12/25/16 06:01 12/25/16 06:01 Additional Lab and Data: Lab Results 12/23/16 12/23/16 12/23/16 Range/Units 00:43 00:43 00:43 WBC 8.4 (3.5-10.8) 10^3/ul RBC 4.06 (4.0-5.4) 10^6/ul Hgb 12.6 L (14.0-18.0) g/dl Hct 38 L (42-52) % MCV 94 (80-94) fL MCH 31 (27-31) pg MCHC 33 (31-36) g/dl RDW 15 (10.5-15) % Plt Count 130 L (150-450) 10^3/ul MPV 10 (7.4-10.4) um3 Neut % (Auto) 78.4 (38-83) % Lymph % (Auto) 13.6 L (25-47) % Mora % (Auto) 6.9 (1-9) % Eos % (Auto) 0.4 (0-6) % Baso % (Auto) 0.7 (0-2) % Absolute Neuts (auto) 6.6 (1.5-7.7) 10^3/ul Absolute Lymphs (auto) 1.1 (1.0-4.8) 10^3/ul Absolute Monos (auto) 0.6 (0-0.8) 10^3/ul Absolute Eos (auto) 0 (0-0.6) 10^3/ul Absolute Basos (auto) 0.1 (0-0.2) 10^3/ul Absolute Nucleated RBC 0.01 10^3/ul Nucleated RBC % 0.1 INR (Anticoag Therapy) 1.29 H (0.89-1.11) APTT 34.0 (26.0-36.3) seconds D-Dimer, Quantitative 237 H (Less Than 230) ng/mL Sodium 138 (133-145) mmol/L Potassium 3.8 (3.5-5.0) mmol/L Chloride 104 (101-111) mmol/L Carbon Dioxide 24 (22-32) mmol/L Anion Gap 10 (2-11) mmol/L BUN 21 (6-24) mg/dL Creatinine 0.98 (0.67-1.17) mg/dL Est GFR ( Amer) 92.8 (>60) Est GFR (Non-Af Amer) 72.2 (>60) BUN/Creatinine Ratio 21.4 H (8-20) Glucose 140 H (70-100) mg/dL Lactic Acid (0.5-2.0) mmol/L Calcium 8.6 (8.6-10.3) mg/dL Magnesium 2.0 (1.9-2.7) mg/dL Total Bilirubin 1.20 H (0.2-1.0) mg/dL AST 15 (13-39) U/L ALT 18 (7-52) U/L Alkaline Phosphatase 128 H (34-104) U/L Total Creatine Kinase 95 (10-223) U/L CK-MB (CK-2) 13.5 H (0.6-6.3) ng/mL Troponin I 0.47 H* (<0.04) ng/mL C-Reactive Protein 4.37 (< 5.00) mg/L B-Natriuretic Peptide ( - 100) pg/mL Total Protein 6.7 (6.4-8.9) g/dL Albumin 3.8 (3.2-5.2) g/dL Globulin 2.9 (2-4) g/dL Albumin/Globulin Ratio 1.3 (1-3) Lipase 30 (11.0-82.0) U/L TSH 9.87 H (0.34-5.60) mcIU/mL 12/23/16 12/23/16 12/23/16 Range/Units 00:43 00:43 02:00 WBC (3.5-10.8) 10^3/ul RBC (4.0-5.4) 10^6/ul Hgb (14.0-18.0) g/dl Hct (42-52) % MCV (80-94) fL MCH (27-31) pg MCHC (31-36) g/dl RDW (10.5-15) % Plt Count (150-450) 10^3/ul MPV (7.4-10.4) um3 Neut % (Auto) (38-83) % Lymph % (Auto) (25-47) % Mora % (Auto) (1-9) % Eos % (Auto) (0-6) % Baso % (Auto) (0-2) % Absolute Neuts (auto) (1.5-7.7) 10^3/ul Absolute Lymphs (auto) (1.0-4.8) 10^3/ul Absolute Monos (auto) (0-0.8) 10^3/ul Absolute Eos (auto) (0-0.6) 10^3/ul Absolute Basos (auto) (0-0.2) 10^3/ul Absolute Nucleated RBC 10^3/ul Nucleated RBC % INR (Anticoag Therapy) (0.89-1.11) APTT (26.0-36.3) seconds D-Dimer, Quantitative (Less Than 230) ng/mL Sodium (133-145) mmol/L Potassium (3.5-5.0) mmol/L Chloride (101-111) mmol/L Carbon Dioxide (22-32) mmol/L Anion Gap (2-11) mmol/L BUN (6-24) mg/dL Creatinine (0.67-1.17) mg/dL Est GFR ( Amer) (>60) Est GFR (Non-Af Amer) (>60) BUN/Creatinine Ratio (8-20) Glucose (70-100) mg/dL Lactic Acid 2.6 H* (0.5-2.0) mmol/L Calcium (8.6-10.3) mg/dL Magnesium (1.9-2.7) mg/dL Total Bilirubin (0.2-1.0) mg/dL AST (13-39) U/L ALT (7-52) U/L Alkaline Phosphatase (34-104) U/L Total Creatine Kinase (10-223) U/L CK-MB (CK-2) (0.6-6.3) ng/mL Troponin I 0.90 H* (<0.04) ng/mL C-Reactive Protein (< 5.00) mg/L B-Natriuretic Peptide 665 H ( - 100) pg/mL Total Protein (6.4-8.9) g/dL Albumin (3.2-5.2) g/dL Globulin (2-4) g/dL Albumin/Globulin Ratio (1-3) Lipase (11.0-82.0) U/L TSH (0.34-5.60) mcIU/mL Microbiology and Other Data: Microbiology 12/23/16 06:41 Urine Culture - Final Urine Enterococcus Faecalis Assess/Plan/Problems-Billing Assessment: 86 yo M with h/o A. fib (on Pradaxa, S/p RIKI(with perivalvular leak ), severe MR and TR on Echo on 12/22/16 readmitted on the same day he was discharged for systolic CHF with NSTEMI - Patient Problems (1) NSTEMI (non-ST elevated myocardial infarction) Comment: cont ASA/BB/statin, stop heparin today appreciate cardiology consult (2) Acute systolic CHF (congestive heart failure) Comment: Due to MR pt's BP had been on the low side, making diuresis difficult. Will cont PO Lasix and cont daily Lasix IV with close observation Pt is aware that he would need mitral valve replaced at some point, but that he is not a candidate for surgery right now. Palliative care will be asked to see pt in consult.cont morphine for SOB/comfort (3) Afib Comment: fairly controlled. cont BB and Cardizem (4) Anxiety Comment: cont Lorazepam prn (5) Hypothyroidism Comment: TSH slightly elevated, but in the face of NSTEMI and CHF will not change the dose (6) DVT prophylaxis Comment: heparin sc (7) DNR (do not resuscitate) Comment: MOLST from 2015 was updated. Pt is DNR Status and Disposition: inpatient, plan to go home with hospice, or to hospice residence if that is an option offered after palliative care consult
[2016-12-25] MEDS: Ferrous Sulfate TAB* 325 MG PO SCH (10:40)
[2016-12-25] MEDS: Potassium Chlor TAB* 20 MEQ TAB.ER PO SCH (10:40)
[2016-12-25] MEDS: Ezetimibe TAB* 10 MG PO SCH (10:41)
[2016-12-25] MEDS: Finasteride TAB* 5 MG PO SCH (10:41)
[2016-12-25] MEDS: Furosemide TAB* 20 MG PO SCH (10:41)
[2016-12-25] MEDS: Atorvastatin* 40 MG TAB PO SCH (21:34)
[2016-12-25] MEDS: Heparin VIAL(*) 5000 UNITS/ML VIAL (FIVE THOUSAND) SUBCUT SCH ×2 (21:35→21:43)
[2016-12-26] MEDS: Levothyroxine TAB* 75 MCG TAB PO SCH (06:00)
[2016-12-26] MEDS: Omeprazole CAP* 20 MG PO SCH (06:00)
[2016-12-26] MEDS: Heparin VIAL(*) 5000 UNITS/ML VIAL (FIVE THOUSAND) SUBCUT SCH ×3 (06:00→20:49)
[2016-12-26] MEDS: LORazepam TAB(*) 0.5 MG PO PRN ×4 (06:01→20:14)
[2016-12-26] MEDS: Potassium Chlor TAB* 20 MEQ TAB.ER PO SCH (09:04)
[2016-12-26] MEDS: Diltiazem CD CAP* 240 MG PO SCH (09:05)
[2016-12-26] MEDS: Metoprolol Tartrate TAB* 25 MG PO SCH ×2 (09:05→21:47)
[2016-12-26] MEDS: buPROPion TAB* 75 MG PO SCH (09:06)
[2016-12-26] MEDS: Furosemide TAB* 20 MG PO SCH (09:06)
[2016-12-26] MEDS: Docusate CAP* 100 MG PO SCH ×2 (09:06→20:09)
[2016-12-26] MEDS: Ezetimibe TAB* 10 MG PO SCH (09:06)
[2016-12-26] MEDS: Finasteride TAB* 5 MG PO SCH (09:06)
[2016-12-26] MEDS: Ferrous Sulfate TAB* 325 MG PO SCH (09:06)
[2016-12-26] MEDS: Aspirin Low Dose CHEW TAB* 81 MG PO SCH (09:06)
--- NOTE | 2016-12-26 13:30 | CONS ---
PALLIATIVE CARE CONSULTATION: DATE OF CONSULTATION: 12/26/16 REFERRING PHYSICIAN: Jennifer Hernandez MD HOSPITAL COURSE: This is an 86-year-old male with a past medical history of coronary artery disease, CHF with an ejection fraction of 20%, significant valvular disease, and atrial fibrillation, who presented to the emergency room for shortness of breath. The patient was just admitted from the to for an acute CHF exacerbation. The patient returned to the ER via EMS on the , was found to be in rapid atrial fibrillation with an elevated troponin. The patient was admitted for possible NSTEMI with question of demand ischemia and rapid atrial fibrillation, placed on a diltiazem drip and metoprolol. He had an echocardiogram done on his initial admission on the that showed severely decreased LV function 20% to 25%, moderate to severe MR, moderate to severe TR, [id number] pulmonary hypertension, moderate pulmonary regurg. Compared to his echo in 2014, the degree of TR and MR has increased and the degree of pulmonary hypertension has increased as well. The patient has a history of anxiety and panic attacks as well. The states he was here about 2 years ago for CHF exacerbation and was admitted at that time and intubated and is hesitant to commit to a do not intubate at this time. He is a do not resuscitate. She now is aware that he is likely going to be oxygen dependent. I discussed with her and the and the son regarding the significant cardiac disease that he is eligible for hospice. She states her goal is to get him home with hospice and would like to have the resources from [facility]. One of her sons is planning to move here tomorrow from [place] indefinitely to help care for him and she will be home and she has two other sons who will be around as well. On my encounter, the patient appears restless intermittently with tachypnea intermittently. He feels that his breathing is okay. He denies any pain although throughout our conversation, he gets intermittently restless, which I suspect is more from anxiety rather than his cardiac status. The states that 2 years ago after he was intubated and hospitalized here, that he has done well and they have been traveling. They have also traveled internationally. They were just at a wedding in [place] a week ago. He has been ambulating at home with a walker intermittently. His appetite has been poor but did improve somewhat today. Otherwise, remaining review of systems is negative. Cardiology was consulted during this admission due to his changes in his echo, who felt that he had class III to IV symptoms for his heart failure and did not think that he was a surgical candidate for his mitral valve in the setting of severe chronic ischemic cardiomyopathy and multivalvular disease, and his TAVR seems to be functioning reasonably well. PAST MEDICAL HISTORY: 1. CAD, status post coronary artery bypass graft in 2006. In 2012, he had a TAVR done in [place] with now a mild perivalvular leak. 2. Severe ischemic cardiomyopathy with an ejection fraction of 20% to 25%. 3. History of atrial fibrillation with left bundle-branch block. 4. Hypothyroidism. 5. History of esophageal stricture, status post dilatation. 6. Anxiety. 7. Depression. 8. BPH. 9. GERD. 10. Suspect some cognitive impairment versus vascular dementia. 11. Moderate to severe MR, moderate to severe TR. 12. Moderate to severe pulmonary hypertension. INPATIENT MEDICATIONS: 1. Tylenol 650 mg every 6 hours as needed. 2. Aspirin 81 mg daily. 3. Atorvastatin 40 mg daily. 4. Diltiazem 240 mg daily. 5. Colace 200 mg p.o. b.i.d. 6. Zetia 10 mg p.o. daily. 7. Ferrous sulfate 325 mg p.o. daily. 8. Finasteride 5 mg p.o. daily. 9. Lasix 20 mg daily. 10. Heparin 5000 units subcu t.i.d. 11. Lorazepam 0.5 mg p.o. q.4h. as needed. 12. Levothyroxine 75 micrograms daily. 13. Melatonin 3 mg at bedtime as needed. 14. Metoprolol tartrate 25 mg p.o. b.i.d. 15. Morphine 5 mg p.o. q.4h. as needed. 16. Omeprazole 20 mg daily. 17. Zofran 4 mg every 6 hours as needed. 18. Potassium chloride 20 mEq daily. 19. Bupropion 150 mg p.o. daily. ALLERGIES: No known drug allergies. SOCIAL HISTORY: Patient lives at home with his who he has been with for more than 63 years. 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 No history of tobacco, alcohol or illicit drug use. He has 3 sons; as mentioned, one son is going to be moving from [place] to stay with him indefinitely. Code status is DNR. The second page is not filled out. FAMILY HISTORY: Reviewed and noncontributory. REVIEW OF SYSTEMS: As mentioned in the HPI. PHYSICAL EXAMINATION: Vitals: Temp is 98.8, pulse rate is 125, respiratory rate 20, oxygen saturation 94% on 2 L. General: Frail elderly male, intermittently restless with tachypnea. HEENT: Neck is supple. No adenopathy. Oropharynx: Mucous membranes are moist. Pupils are equal and reactive, anicteric. Head: Normocephalic. Cardiac: Rapid, irregularly irregular rate and rhythm with a harsh diastolic murmur. Respiratory: Diminished breath sounds. Bibasilar crackles. Abdomen: Soft, nontender. Extremities: No clubbing, cyanosis or edema. +1 DP. Neurologic: Alert and oriented x3. No focal neurologic deficits. LABORATORY DATA: Sodium 136, potassium 4.5, chloride 104, bicarbonate 22, BUN 41, creatinine 1.23. ASSESSMENT: This is an 86-year-old male with a past medical history of coronary artery disease and multivalvular disease, who presents for a second admission within the week with shortness of breath, found to be in rapid atrial fibrillation with an NSTEMI. The patient is eligible for hospice with his terminal diagnosis of ischemic cardiomyopathy, 20% to 25%, with secondary diagnosis of moderate to severe pulmonary hypertension, moderate to severe MR and TR. The would like to take him home with hospice. We discussed the MOLST form again at length regarding do not intubate. The is hesitant to do this as he was intubated 2 years ago and did well for 2 years and traveled the world. I discussed that I did not think that he would survive if he went into a respiratory arrest. I gave them the MOLST form to review, to look at the options of comfort measures and to do not re-hospitalize. The and the son and the patient are going to review this and get back to us. At this time, I will change his Ativan to q.2h. as it seems that his anxiety seems to be a major component of his restlessness and seems to be working for him and also I will change his morphine to q.2h. as well. I will follow up with case management to discuss referral to hospice. Thank you for this consultation. We will follow up with you. TIME SPENT: Greater than 90 minutes were spent doing the consultation, more than half the time spent in direct patient contact. CC: Arcadio Sheikh MD; Obi Jean MD* [id number]/[facility] #: [id number] MTDD
--- NOTE | 2016-12-26 14:26 | PN ---
Subjective Date of Service: 12/26/16 Interval History: pt is feeling better today. sitting in a chair. Still has occasional episodes of unexplained tachypnea. Denies CP Objective Active Medications: Acetaminophen (Tylenol Tab*) 650 mg PO Q6H PRN PRN Reason: FEVER/PAIN Aspirin (Aspirin Low Dose Tab*) 81 mg PO DAILY [facility] Last Admin: 12/26/16 09:06 Dose: 81 mg Atorvastatin Calcium (Lipitor*) 40 mg PO 2100 [facility] Last Admin: 12/25/16 21:34 Dose: 40 mg Bupropion HCl (Wellbutrin Tab*) 150 mg PO DAILY [facility] Last Admin: 12/26/16 09:06 Dose: 150 mg Diltiazem HCl (Cardizem Cd Cap*) 240 mg PO DAILY [facility] Last Admin: 12/26/16 09:05 Dose: 240 mg Docusate Sodium (Colace Cap*) 200 mg PO BID [facility] Last Admin: 12/26/16 09:06 Dose: 200 mg Ezetimibe (Zetia Tab*) 10 mg PO DAILY [facility] Last Admin: 12/26/16 09:06 Dose: 10 mg Ferrous Sulfate (Ferrous Sulfate Tab*) 325 mg PO DAILY [facility] Last Admin: 12/26/16 09:06 Dose: 325 mg Finasteride (Proscar Tab*) 5 mg PO DAILY [facility] Last Admin: 12/26/16 09:06 Dose: 5 mg Furosemide (Lasix Tab*) 20 mg PO DAILY [facility] Last Admin: 12/26/16 09:06 Dose: 20 mg Heparin Sodium (Porcine) (Heparin Vial(*)) 5,000 units SUBCUT Q8HR [facility] Last Admin: 12/26/16 13:27 Dose: 5,000 units Levothyroxine Sodium (Synthroid Tab*) 75 mcg PO 0600 [facility] Last Admin: 12/26/16 06:00 Dose: 75 mcg Lorazepam (Ativan Tab(*)) 0.5 mg PO Q2HR PRN PRN Reason: ANXIETY Last Admin: 12/26/16 13:27 Dose: 0.5 mg Melatonin (Melatonin (Nf)) 3 mg PO BEDTIME PRN; Protocol PRN Reason: Sleep Last Admin: 12/23/16 22:29 Dose: 3 mg Metoprolol Tartrate (Lopressor Tab*) 25 mg PO BID [facility] Last Admin: 12/26/16 09:05 Dose: 25 mg Morphine Sulfate (Morphine Oral.Soln 10 Mg*) 5 mg PO Q2HR PRN PRN Reason: SOB/WHEEZING Omeprazole (Prilosec Cap*) 20 mg PO DAILY@0600 [facility] Last Admin: 12/26/16 06:00 Dose: 20 mg Ondansetron HCl (Zofran Inj*) 4 mg IV Q6H PRN PRN Reason: NAUSEA Potassium Chloride (Klor Con Er Tab*) 20 meq PO DAILY [facility] Last Admin: 12/26/16 09:04 Dose: 20 meq Vital Signs 12/25/16 12/25/16 12/25/16 15:34 15:49 17:49 Temperature 97.6 F Pulse Rate 89 Respiratory 28 30 26 Rate Blood Pressure 105/63 (mmHg) O2 Sat by Pulse 98 Oximetry 12/25/16 12/25/16 12/25/16 19:47 20:00 21:34 Temperature 98.6 F Pulse Rate 84 Respiratory 26 26 26 Rate Blood Pressure 100/71 (mmHg) O2 Sat by Pulse 91 Oximetry 12/25/16 12/26/16 12/26/16 23:34 00:18 02:30 Temperature 97.6 F Pulse Rate 40 Respiratory 26 28 Rate Blood Pressure 97/59 (mmHg) O2 Sat by Pulse 94 98 Oximetry 12/26/16 12/26/16 12/26/16 03:52 06:01 07:37 Temperature 98.8 F Pulse Rate 86 42 Respiratory 28 28 20 Rate Blood Pressure 103/55 109/56 (mmHg) O2 Sat by Pulse 94 90 Oximetry 12/26/16 12/26/16 12/26/16 08:00 08:01 08:34 Temperature Pulse Rate Respiratory 24 20 Rate Blood Pressure (mmHg) O2 Sat by Pulse 94 Oximetry 12/26/16 13:27 Temperature Pulse Rate Respiratory 28 Rate Blood Pressure (mmHg) O2 Sat by Pulse Oximetry Oxygen Devices in Use Now: Nasal Cannula - at 2 L Appearance: 86 yo M in nAD,AAOx2 Eyes: No Scleral Icterus, PERRLA Ears/Nose/Mouth/Throat: NL Teeth, Lips, Gums, Mucous Membranes Moist Neck: NL Appearance and Movements; NL JVP, Trachea Midline Respiratory: Symmetrical Chest Expansion and Respiratory Effort, - - decrease breth sounds at bases Cardiovascular: - - 3/6 SIDDHARTH, irregular Abdominal: NL Sounds; No Tenderness; No Distention, No Hepatosplenomegaly Lymphatic: No Cervical Adenopathy Extremities: No Edema, No Clubbing, Cyanosis Skin: No Rash or Ulcers, No Nodules or Sclerosis Neurological: NL Muscle Strength and Tone Result Diagrams: 12/25/16 06:01 12/25/16 06:01 Additional Lab and Data: Lab Results 12/23/16 12/23/16 12/23/16 Range/Units 00:43 00:43 00:43 WBC 8.4 (3.5-10.8) 10^3/ul RBC 4.06 (4.0-5.4) 10^6/ul Hgb 12.6 L (14.0-18.0) g/dl Hct 38 L (42-52) % MCV 94 (80-94) fL MCH 31 (27-31) pg MCHC 33 (31-36) g/dl RDW 15 (10.5-15) % Plt Count 130 L (150-450) 10^3/ul MPV 10 (7.4-10.4) um3 Neut % (Auto) 78.4 (38-83) % Lymph % (Auto) 13.6 L (25-47) % George % (Auto) 6.9 (1-9) % Eos % (Auto) 0.4 (0-6) % Baso % (Auto) 0.7 (0-2) % Absolute Neuts (auto) 6.6 (1.5-7.7) 10^3/ul Absolute Lymphs (auto) 1.1 (1.0-4.8) 10^3/ul Absolute Monos (auto) 0.6 (0-0.8) 10^3/ul Absolute Eos (auto) 0 (0-0.6) 10^3/ul Absolute Basos (auto) 0.1 (0-0.2) 10^3/ul Absolute Nucleated RBC 0.01 10^3/ul Nucleated RBC % 0.1 INR (Anticoag Therapy) 1.29 H (0.89-1.11) APTT 34.0 (26.0-36.3) seconds D-Dimer, Quantitative 237 H (Less Than 230) ng/mL Sodium 138 (133-145) mmol/L Potassium 3.8 (3.5-5.0) mmol/L Chloride 104 (101-111) mmol/L Carbon Dioxide 24 (22-32) mmol/L Anion Gap 10 (2-11) mmol/L BUN 21 (6-24) mg/dL Creatinine 0.98 (0.67-1.17) mg/dL Est GFR ( Amer) 92.8 (>60) Est GFR (Non-Af Amer) 72.2 (>60) BUN/Creatinine Ratio 21.4 H (8-20) Glucose 140 H (70-100) mg/dL Lactic Acid (0.5-2.0) mmol/L Calcium 8.6 (8.6-10.3) mg/dL Magnesium 2.0 (1.9-2.7) mg/dL Total Bilirubin 1.20 H (0.2-1.0) mg/dL AST 15 (13-39) U/L ALT 18 (7-52) U/L Alkaline Phosphatase 128 H (34-104) U/L Total Creatine Kinase 95 (10-223) U/L CK-MB (CK-2) 13.5 H (0.6-6.3) ng/mL Troponin I 0.47 H* (<0.04) ng/mL C-Reactive Protein 4.37 (< 5.00) mg/L B-Natriuretic Peptide ( - 100) pg/mL Total Protein 6.7 (6.4-8.9) g/dL Albumin 3.8 (3.2-5.2) g/dL Globulin 2.9 (2-4) g/dL Albumin/Globulin Ratio 1.3 (1-3) Lipase 30 (11.0-82.0) U/L TSH 9.87 H (0.34-5.60) mcIU/mL 12/23/16 12/23/16 12/23/16 Range/Units 00:43 00:43 02:00 WBC (3.5-10.8) 10^3/ul RBC (4.0-5.4) 10^6/ul Hgb (14.0-18.0) g/dl Hct (42-52) % MCV (80-94) fL MCH (27-31) pg MCHC (31-36) g/dl RDW (10.5-15) % Plt Count (150-450) 10^3/ul MPV (7.4-10.4) um3 Neut % (Auto) (38-83) % Lymph % (Auto) (25-47) % George % (Auto) (1-9) % Eos % (Auto) (0-6) % Baso % (Auto) (0-2) % Absolute Neuts (auto) (1.5-7.7) 10^3/ul Absolute Lymphs (auto) (1.0-4.8) 10^3/ul Absolute Monos (auto) (0-0.8) 10^3/ul Absolute Eos (auto) (0-0.6) 10^3/ul Absolute Basos (auto) (0-0.2) 10^3/ul Absolute Nucleated RBC 10^3/ul Nucleated RBC % INR (Anticoag Therapy) (0.89-1.11) APTT (26.0-36.3) seconds D-Dimer, Quantitative (Less Than 230) ng/mL Sodium (133-145) mmol/L Potassium (3.5-5.0) mmol/L Chloride (101-111) mmol/L Carbon Dioxide (22-32) mmol/L Anion Gap (2-11) mmol/L BUN (6-24) mg/dL Creatinine (0.67-1.17) mg/dL Est GFR ( Amer) (>60) Est GFR (Non-Af Amer) (>60) BUN/Creatinine Ratio (8-20) Glucose (70-100) mg/dL Lactic Acid 2.6 H* (0.5-2.0) mmol/L Calcium (8.6-10.3) mg/dL Magnesium (1.9-2.7) mg/dL Total Bilirubin (0.2-1.0) mg/dL AST (13-39) U/L ALT (7-52) U/L Alkaline Phosphatase (34-104) U/L Total Creatine Kinase (10-223) U/L CK-MB (CK-2) (0.6-6.3) ng/mL Troponin I 0.90 H* (<0.04) ng/mL C-Reactive Protein (< 5.00) mg/L B-Natriuretic Peptide 665 H ( - 100) pg/mL Total Protein (6.4-8.9) g/dL Albumin (3.2-5.2) g/dL Globulin (2-4) g/dL Albumin/Globulin Ratio (1-3) Lipase (11.0-82.0) U/L TSH (0.34-5.60) mcIU/mL Microbiology and Other Data: Microbiology 12/23/16 06:41 Urine Culture - Final Urine Enterococcus Faecalis Assess/Plan/Problems-Billing Assessment: 86 yo M with h/o A. fib (on Pradaxa, S/p RIKI(with perivalvular leak ), severe MR and TR on Echo on 12/22/16 readmitted on the same day he was discharged for systolic CHF with NSTEMI - Patient Problems (1) NSTEMI (non-ST elevated myocardial infarction) Comment: cont ASA/BB/statin.completed 48 hrs of heparin gtt appreciate cardiology consult (2) Acute systolic CHF (congestive heart failure) Comment: Due to MR pt's BP had been on the low side, making diuresis difficult. Will cont PO Lasix holding IV diuresis for now. Pt is aware that he would need mitral valve replaced at some point, but that he is not a candidate for surgery right now. Palliative care saw pt in consult. Pt can be singned in to hospice at home after discharge cont morphine for SOB/comfort (3) Afib Comment: fairly controlled. cont BB and Cardizem (4) Anxiety Comment: cont Lorazepam prn (5) Hypothyroidism Comment: TSH slightly elevated, but in the face of NSTEMI and CHF will not change the dose of synthroid for now. (6) DVT prophylaxis Comment: heparin sc (7) DNR (do not resuscitate) Comment: MOLST from 2015 was updated. Pt is DNR, OK for intubation Status and Disposition: inpatient, plan to go home with hospice, or to hospice residence if that is an option offered after palliative care consult
[2016-12-26] MEDS: Morphine ORAL.SOLN 10 mg* 2 MG/ML UDC 5 ml PO PRN ×2 (16:09→20:16)
[2016-12-26] MEDS ORDERED: Furosemide IV* 10 MG/ML 2 ML VIAL (20 MG) IV ONE (16:26)
[2016-12-26] MEDS: Atorvastatin* 40 MG TAB PO SCH (20:09)
[2016-12-27] MEDS: Omeprazole CAP* 20 MG PO SCH (05:41)
[2016-12-27] MEDS: Levothyroxine TAB* 75 MCG TAB PO SCH (05:41)
[2016-12-27] MEDS: Heparin VIAL(*) 5000 UNITS/ML VIAL (FIVE THOUSAND) SUBCUT SCH (05:46)
[2016-12-27 06:52] LABS: BUN/Creatinine Ratio 46.6 (8-20); Calcium 8.2 mg/dL (8.6-10.3); EGFR African American 66.4 (>60); EGFR Non-African American 51.6 (>60); Potassium 4.1 mmol/L (3.5-5.0)
[2016-12-27 07:56] VITALS: BP 98/56
[2016-12-27] MEDS: Docusate CAP* 100 MG PO SCH ×2 (08:26→21:55)
[2016-12-27] MEDS: Ferrous Sulfate TAB* 325 MG PO SCH (08:26)
[2016-12-27] MEDS: Aspirin Low Dose CHEW TAB* 81 MG PO SCH (08:26)
[2016-12-27] MEDS: Potassium Chlor TAB* 20 MEQ TAB.ER PO SCH (08:26)
[2016-12-27] MEDS: Ezetimibe TAB* 10 MG PO SCH (08:26)
[2016-12-27] MEDS: Diltiazem CD CAP* 240 MG PO SCH (08:27)
[2016-12-27] MEDS: Finasteride TAB* 5 MG PO SCH (08:27)
[2016-12-27] MEDS: Furosemide TAB* 20 MG PO SCH (08:27)
[2016-12-27] MEDS: buPROPion TAB* 75 MG PO SCH (08:27)
[2016-12-27] MEDS: Metoprolol Tartrate TAB* 25 MG PO SCH ×2 (08:29→21:55)
--- NOTE | 2016-12-27 11:40 | PN ---
Subjective Date of Service: 12/27/16 Interval History: After initial improvement yesterday in AM, pt continued to get worse in the past 24 hrs with periods of hyperventilation and anxiety and confusion. -02 flow rate increased to 10 L Objective Active Medications: Acetaminophen (Tylenol Tab*) 650 mg PO Q6H PRN PRN Reason: FEVER/PAIN Aspirin (Aspirin Low Dose Tab*) 81 mg PO DAILY [facility] Last Admin: 12/27/16 08:26 Dose: 81 mg Atorvastatin Calcium (Lipitor*) 40 mg PO 2100 [facility] Last Admin: 12/26/16 20:09 Dose: 40 mg Bupropion HCl (Wellbutrin Tab*) 150 mg PO DAILY [facility] Last Admin: 12/27/16 08:27 Dose: 150 mg Diltiazem HCl (Cardizem Cd Cap*) 240 mg PO DAILY [facility] Last Admin: 12/27/16 08:27 Dose: 240 mg Docusate Sodium (Colace Cap*) 200 mg PO BID [facility] Last Admin: 12/27/16 08:26 Dose: 200 mg Ezetimibe (Zetia Tab*) 10 mg PO DAILY [facility] Last Admin: 12/27/16 08:26 Dose: 10 mg Ferrous Sulfate (Ferrous Sulfate Tab*) 325 mg PO DAILY [facility] Last Admin: 12/27/16 08:26 Dose: 325 mg Finasteride (Proscar Tab*) 5 mg PO DAILY [facility] Last Admin: 12/27/16 08:27 Dose: 5 mg Furosemide (Lasix Tab*) 20 mg PO DAILY [facility] Last Admin: 12/27/16 08:27 Dose: 20 mg Heparin Sodium (Porcine) (Heparin Vial(*)) 5,000 units SUBCUT Q8HR [facility] Last Admin: 12/27/16 05:46 Dose: 5,000 units Levothyroxine Sodium (Synthroid Tab*) 75 mcg PO 0600 [facility] Last Admin: 12/27/16 05:41 Dose: 75 mcg Lorazepam (Ativan Tab(*)) 0.5 mg PO Q2HR PRN PRN Reason: ANXIETY Last Admin: 12/26/16 20:14 Dose: 0.5 mg Melatonin (Melatonin (Nf)) 3 mg PO BEDTIME PRN; Protocol PRN Reason: Sleep Last Admin: 12/23/16 22:29 Dose: 3 mg Metoprolol Tartrate (Lopressor Tab*) 25 mg PO BID [facility] Last Admin: 12/27/16 08:29 Dose: 25 mg Morphine Sulfate (Morphine Oral.Soln 10 Mg*) 5 mg PO Q2HR PRN PRN Reason: SOB/WHEEZING Last Admin: 12/26/16 20:16 Dose: 5 mg Omeprazole (Prilosec Cap*) 20 mg PO DAILY@0600 [facility] Last Admin: 12/27/16 05:41 Dose: 20 mg Ondansetron HCl (Zofran Inj*) 4 mg IV Q6H PRN PRN Reason: NAUSEA Potassium Chloride (Klor Con Er Tab*) 20 meq PO DAILY [facility] Last Admin: 12/27/16 08:26 Dose: 20 meq Vital Signs 12/26/16 12/26/16 12/26/16 12:14 13:27 15:27 Temperature 98.7 F Pulse Rate 81 Respiratory 18 28 24 Rate Blood Pressure 82/58 (mmHg) O2 Sat by Pulse 92 Oximetry 12/26/16 12/26/16 12/26/16 15:50 16:09 16:11 Temperature 98.6 F Pulse Rate 41 Respiratory 24 24 36 Rate Blood Pressure 107/59 (mmHg) O2 Sat by Pulse 88 Oximetry 12/26/16 12/26/16 12/26/16 17:44 20:00 20:05 Temperature 97.9 F Pulse Rate 83 Respiratory 28 36 36 Rate Blood Pressure 99/46 (mmHg) O2 Sat by Pulse 91 Oximetry 12/26/16 12/26/16 12/26/16 20:12 20:14 20:16 Temperature Pulse Rate Respiratory 36 36 Rate Blood Pressure (mmHg) O2 Sat by Pulse 84 Oximetry 12/26/16 12/26/16 12/26/16 20:30 21:25 22:14 Temperature Pulse Rate 83 Respiratory 36 Rate Blood Pressure 108/55 (mmHg) O2 Sat by Pulse 84 Oximetry 12/26/16 12/26/16 12/27/16 22:16 23:08 03:50 Temperature 97.5 F 98.9 F Pulse Rate 84 76 Respiratory 28 28 32 Rate Blood Pressure 95/42 93/45 (mmHg) O2 Sat by Pulse 97 98 Oximetry 12/27/16 12/27/16 07:42 08:00 Temperature 98.4 F Pulse Rate 84 Respiratory 19 20 Rate Blood Pressure 98/56 (mmHg) O2 Sat by Pulse Oximetry Oxygen Devices in Use Now: Nasal Cannula - at10 L Appearance: 86 yo M, lying in bed, hyperactive, disoriented, occasionally drifts off to sleep. Oriented x 2 Eyes: No Scleral Icterus, PERRLA Ears/Nose/Mouth/Throat: NL Teeth, Lips, Gums, - - dry musosa Neck: NL Appearance and Movements; NL JVP, Trachea Midline Respiratory: - - bibasiliar crackles Cardiovascular: - - 3/6 SIDDHARTH, irregullar Abdominal: NL Sounds; No Tenderness; No Distention, No Hepatosplenomegaly Lymphatic: No Cervical Adenopathy Extremities: No Edema Skin: No Rash or Ulcers, No Nodules or Sclerosis Neurological: NL Muscle Strength and Tone Result Diagrams: 12/25/16 06:01 12/27/16 06:03 Additional Lab and Data: Lab Results 12/23/16 12/23/16 12/23/16 Range/Units 00:43 00:43 00:43 WBC 8.4 (3.5-10.8) 10^3/ul RBC 4.06 (4.0-5.4) 10^6/ul Hgb 12.6 L (14.0-18.0) g/dl Hct 38 L (42-52) % MCV 94 (80-94) fL MCH 31 (27-31) pg MCHC 33 (31-36) g/dl RDW 15 (10.5-15) % Plt Count 130 L (150-450) 10^3/ul MPV 10 (7.4-10.4) um3 Neut % (Auto) 78.4 (38-83) % Lymph % (Auto) 13.6 L (25-47) % Dyer % (Auto) 6.9 (1-9) % Eos % (Auto) 0.4 (0-6) % Baso % (Auto) 0.7 (0-2) % Absolute Neuts (auto) 6.6 (1.5-7.7) 10^3/ul Absolute Lymphs (auto) 1.1 (1.0-4.8) 10^3/ul Absolute Monos (auto) 0.6 (0-0.8) 10^3/ul Absolute Eos (auto) 0 (0-0.6) 10^3/ul Absolute Basos (auto) 0.1 (0-0.2) 10^3/ul Absolute Nucleated RBC 0.01 10^3/ul Nucleated RBC % 0.1 INR (Anticoag Therapy) 1.29 H (0.89-1.11) APTT 34.0 (26.0-36.3) seconds D-Dimer, Quantitative 237 H (Less Than 230) ng/mL Sodium 138 (133-145) mmol/L Potassium 3.8 (3.5-5.0) mmol/L Chloride 104 (101-111) mmol/L Carbon Dioxide 24 (22-32) mmol/L Anion Gap 10 (2-11) mmol/L BUN 21 (6-24) mg/dL Creatinine 0.98 (0.67-1.17) mg/dL Est GFR ( Amer) 92.8 (>60) Est GFR (Non-Af Amer) 72.2 (>60) BUN/Creatinine Ratio 21.4 H (8-20) Glucose 140 H (70-100) mg/dL Lactic Acid (0.5-2.0) mmol/L Calcium 8.6 (8.6-10.3) mg/dL Magnesium 2.0 (1.9-2.7) mg/dL Total Bilirubin 1.20 H (0.2-1.0) mg/dL AST 15 (13-39) U/L ALT 18 (7-52) U/L Alkaline Phosphatase 128 H (34-104) U/L Total Creatine Kinase 95 (10-223) U/L CK-MB (CK-2) 13.5 H (0.6-6.3) ng/mL Troponin I 0.47 H* (<0.04) ng/mL C-Reactive Protein 4.37 (< 5.00) mg/L B-Natriuretic Peptide ( - 100) pg/mL Total Protein 6.7 (6.4-8.9) g/dL Albumin 3.8 (3.2-5.2) g/dL Globulin 2.9 (2-4) g/dL Albumin/Globulin Ratio 1.3 (1-3) Lipase 30 (11.0-82.0) U/L TSH 9.87 H (0.34-5.60) mcIU/mL 12/23/16 12/23/16 12/23/16 Range/Units 00:43 00:43 02:00 WBC (3.5-10.8) 10^3/ul RBC (4.0-5.4) 10^6/ul Hgb (14.0-18.0) g/dl Hct (42-52) % MCV (80-94) fL MCH (27-31) pg MCHC (31-36) g/dl RDW (10.5-15) % Plt Count (150-450) 10^3/ul MPV (7.4-10.4) um3 Neut % (Auto) (38-83) % Lymph % (Auto) (25-47) % Dyer % (Auto) (1-9) % Eos % (Auto) (0-6) % Baso % (Auto) (0-2) % Absolute Neuts (auto) (1.5-7.7) 10^3/ul Absolute Lymphs (auto) (1.0-4.8) 10^3/ul Absolute Monos (auto) (0-0.8) 10^3/ul Absolute Eos (auto) (0-0.6) 10^3/ul Absolute Basos (auto) (0-0.2) 10^3/ul Absolute Nucleated RBC 10^3/ul Nucleated RBC % INR (Anticoag Therapy) (0.89-1.11) APTT (26.0-36.3) seconds D-Dimer, Quantitative (Less Than 230) ng/mL Sodium (133-145) mmol/L Potassium (3.5-5.0) mmol/L Chloride (101-111) mmol/L Carbon Dioxide (22-32) mmol/L Anion Gap (2-11) mmol/L BUN (6-24) mg/dL Creatinine (0.67-1.17) mg/dL Est GFR ( Amer) (>60) Est GFR (Non-Af Amer) (>60) BUN/Creatinine Ratio (8-20) Glucose (70-100) mg/dL Lactic Acid 2.6 H* (0.5-2.0) mmol/L Calcium (8.6-10.3) mg/dL Magnesium (1.9-2.7) mg/dL Total Bilirubin (0.2-1.0) mg/dL AST (13-39) U/L ALT (7-52) U/L Alkaline Phosphatase (34-104) U/L Total Creatine Kinase (10-223) U/L CK-MB (CK-2) (0.6-6.3) ng/mL Troponin I 0.90 H* (<0.04) ng/mL C-Reactive Protein (< 5.00) mg/L B-Natriuretic Peptide 665 H ( - 100) pg/mL Total Protein (6.4-8.9) g/dL Albumin (3.2-5.2) g/dL Globulin (2-4) g/dL Albumin/Globulin Ratio (1-3) Lipase (11.0-82.0) U/L TSH (0.34-5.60) mcIU/mL Microbiology and Other Data: Microbiology 12/23/16 06:41 Urine Culture - Final Urine Enterococcus Faecalis Assess/Plan/Problems-Billing Assessment: 86 yo M with h/o A. fib (on Pradaxa, S/p RIKI(with perivalvular leak ), severe MR and TR on Echo on 12/22/16 readmitted on the same day he was discharged for systolic CHF with NSTEMI - Patient Problems (1) NSTEMI (non-ST elevated myocardial infarction) Comment: cont ASA/BB/statin.completed 48 hrs of heparin gtt appreciate cardiology consult (2) Acute systolic CHF (congestive heart failure) Comment: Due to MR pt's BP had been on the low side, making diuresis difficult. due to increase in creatinine and low PO intake will cont only PO Lasix at home dose. Pt had been intermittenly confused and very restless. Despite diuresis his respiratory status is not improving. Had a long conversation with pt's and two sons. although originally the plan was to d/c pt home with hospice , but it doesn't appear to be feasible anymore with pt in current state (he has not walked x 4 days and is disoriened requiring constant supervision). Family agrees to hospice residence. Spoke with CM who will be notifying hospice Will start comfort care orders as per family's request. will cont PO meds at he same doses as at home. cont morphine for SOB/comfort (3) Toxic metabolic encephalopathy Comment: due to delirium -due to a comination of anxiety, not sleeping well, respiratory compromise and advanced age. (4) Afib Comment: fairly controlled. cont BB and Cardizem (5) Anxiety Comment: cont Lorazepam prn (6) Hypothyroidism Comment: TSH slightly elevated, but in the face of NSTEMI and CHF will not change the dose of synthroid for now. (7) DVT prophylaxis Comment: pradaxa will be restarted (heparin gtt was discontinued), no dose adjustment necessary for current creatinine clearance (today at 38) (8) DNR (do not resuscitate) Comment: MOLST from 2015 was updated. Pt is DNR, OK for intubation Status and Disposition: inpatient, plan to go hospice residence if possible. Pt is comfort care
[2016-12-27] MEDS: Morphine ORAL.SOLN 10 mg* 2 MG/ML UDC 5 ml PO PRN ×2 (15:02→22:07)
[2016-12-27] MEDS: Atorvastatin* 40 MG TAB PO SCH (21:54)
[2016-12-27] MEDS: CMCS: Dabigatran CAP(NF) 150 MG CAP PO SCH (21:55)
[2016-12-28] MEDS: LORazepam TAB(*) 0.5 MG PO PRN ×3 (00:36→11:19)
[2016-12-28] MEDS: Morphine ORAL.SOLN 10 mg* 2 MG/ML UDC 5 ml PO PRN ×2 (04:00→07:24)
[2016-12-28] MEDS: Levothyroxine TAB* 75 MCG TAB PO SCH (05:09)
[2016-12-28] MEDS: Omeprazole CAP* 20 MG PO SCH (05:10)
[2016-12-28] MEDS ORDERED: Atropine 1% (ORAL/SL)* 15 ML BTL SL PRN (09:34)
[2016-12-28] MEDS: Docusate CAP* 100 MG PO SCH ×2 (09:41→11:16)
[2016-12-28] MEDS: Potassium Chlor TAB* 20 MEQ TAB.ER PO SCH (09:41)
[2016-12-28] MEDS: Furosemide TAB* 20 MG PO SCH ×2 (09:41→11:09)
[2016-12-28] MEDS: Finasteride TAB* 5 MG PO SCH ×2 (09:41→11:09)
[2016-12-28] MEDS: Ferrous Sulfate TAB* 325 MG PO SCH (09:41)
[2016-12-28] MEDS: Aspirin Low Dose CHEW TAB* 81 MG PO SCH (09:41)
[2016-12-28] MEDS: CMCS: Dabigatran CAP(NF) 150 MG CAP PO SCH (09:41)
[2016-12-28] MEDS: Diltiazem CD CAP* 240 MG PO SCH (09:41)
[2016-12-28] MEDS: Metoprolol Tartrate TAB* 25 MG PO SCH (09:41)
[2016-12-28] MEDS: buPROPion TAB* 75 MG PO SCH (09:41)
[2016-12-28] MEDS: Ezetimibe TAB* 10 MG PO SCH (09:41)
[2016-12-28] MEDS ORDERED: Morphine ORAL.SOLN 10 mg* 2 MG/ML UDC 5 ml PO PRN ×2 (10:45→11:52)
--- NOTE | 2016-12-28 10:49 | PN ---
Subjective Date of Service: 12/28/16 Interval History: Patient seen this morning with son and present. He seems a bit uncomfortable at times, other times falls asleep. Family is working on setting up care at home. Also, awaiting date for hospice enrollment. Family History: Unchanged from Admission Social History: Unchanged from Admission Past Medical History: Unchanged from Admission Objective Active Medications: Atropine Sulfate (Atropine 1% (Oral/Sl)*) 2 drop SL Q2H PRN Docusate Sodium (Colace Cap*) 200 mg PO BID [facility] Finasteride (Proscar Tab*) 5 mg PO DAILY [facility] Furosemide (Lasix Tab*) 20 mg PO DAILY [facility] Lorazepam (Ativan Tab(*)) 0.5 mg PO Q2HR PRN Melatonin (Melatonin (Nf)) 3 mg PO BEDTIME PRN; Protocol Morphine Sulfate (Morphine Oral.Soln 10 Mg*) 5 mg PO Q2HR PRN Omeprazole (Prilosec Cap*) 20 mg PO DAILY@0600 [facility] Ondansetron HCl (Zofran Inj*) 4 mg IV Q6H PRN Vital Signs 12/27/16 12/27/16 12/27/16 15:02 17:01 20:00 Respiratory 28 22 24 Rate 12/27/16 12/28/16 12/28/16 22:07 00:07 00:36 Respiratory 24 23 27 Rate 12/28/16 12/28/16 12/28/16 02:36 04:00 06:00 Respiratory 22 26 26 Rate 12/28/16 12/28/16 12/28/16 07:05 07:24 07:25 Respiratory 26 28 28 Rate 12/28/16 09:24 Respiratory 26 Rate Oxygen Devices in Use Now: Simple Face Mask - 10 L Appearance: Elderly, M, laying in bed in mild distress Eyes: No Scleral Icterus Ears/Nose/Mouth/Throat: - - Dry MM Neck: NL Appearance and Movements; NL JVP Respiratory: - - Tachypnea, some rales throughout Cardiovascular: - - IRIR Abdominal: NL Sounds; No Tenderness; No Distention Lymphatic: No Cervical Adenopathy Extremities: No Edema Result Diagrams: 12/25/16 06:01 12/27/16 06:03 Additional Lab and Data: Lab Results 12/23/16 12/23/16 12/23/16 Range/Units 00:43 00:43 00:43 WBC 8.4 (3.5-10.8) 10^3/ul RBC 4.06 (4.0-5.4) 10^6/ul Hgb 12.6 L (14.0-18.0) g/dl Hct 38 L (42-52) % MCV 94 (80-94) fL MCH 31 (27-31) pg MCHC 33 (31-36) g/dl RDW 15 (10.5-15) % Plt Count 130 L (150-450) 10^3/ul MPV 10 (7.4-10.4) um3 Neut % (Auto) 78.4 (38-83) % Lymph % (Auto) 13.6 L (25-47) % Aiken % (Auto) 6.9 (1-9) % Eos % (Auto) 0.4 (0-6) % Baso % (Auto) 0.7 (0-2) % Absolute Neuts (auto) 6.6 (1.5-7.7) 10^3/ul Absolute Lymphs (auto) 1.1 (1.0-4.8) 10^3/ul Absolute Monos (auto) 0.6 (0-0.8) 10^3/ul Absolute Eos (auto) 0 (0-0.6) 10^3/ul Absolute Basos (auto) 0.1 (0-0.2) 10^3/ul Absolute Nucleated RBC 0.01 10^3/ul Nucleated RBC % 0.1 INR (Anticoag Therapy) 1.29 H (0.89-1.11) APTT 34.0 (26.0-36.3) seconds D-Dimer, Quantitative 237 H (Less Than 230) ng/mL Sodium 138 (133-145) mmol/L Potassium 3.8 (3.5-5.0) mmol/L Chloride 104 (101-111) mmol/L Carbon Dioxide 24 (22-32) mmol/L Anion Gap 10 (2-11) mmol/L BUN 21 (6-24) mg/dL Creatinine 0.98 (0.67-1.17) mg/dL Est GFR ( Amer) 92.8 (>60) Est GFR (Non-Af Amer) 72.2 (>60) BUN/Creatinine Ratio 21.4 H (8-20) Glucose 140 H (70-100) mg/dL Lactic Acid (0.5-2.0) mmol/L Calcium 8.6 (8.6-10.3) mg/dL Magnesium 2.0 (1.9-2.7) mg/dL Total Bilirubin 1.20 H (0.2-1.0) mg/dL AST 15 (13-39) U/L ALT 18 (7-52) U/L Alkaline Phosphatase 128 H (34-104) U/L Total Creatine Kinase 95 (10-223) U/L CK-MB (CK-2) 13.5 H (0.6-6.3) ng/mL Troponin I 0.47 H* (<0.04) ng/mL C-Reactive Protein 4.37 (< 5.00) mg/L B-Natriuretic Peptide ( - 100) pg/mL Total Protein 6.7 (6.4-8.9) g/dL Albumin 3.8 (3.2-5.2) g/dL Globulin 2.9 (2-4) g/dL Albumin/Globulin Ratio 1.3 (1-3) Lipase 30 (11.0-82.0) U/L TSH 9.87 H (0.34-5.60) mcIU/mL 12/23/16 12/23/16 12/23/16 Range/Units 00:43 00:43 02:00 WBC (3.5-10.8) 10^3/ul RBC (4.0-5.4) 10^6/ul Hgb (14.0-18.0) g/dl Hct (42-52) % MCV (80-94) fL MCH (27-31) pg MCHC (31-36) g/dl RDW (10.5-15) % Plt Count (150-450) 10^3/ul MPV (7.4-10.4) um3 Neut % (Auto) (38-83) % Lymph % (Auto) (25-47) % Aiken % (Auto) (1-9) % Eos % (Auto) (0-6) % Baso % (Auto) (0-2) % Absolute Neuts (auto) (1.5-7.7) 10^3/ul Absolute Lymphs (auto) (1.0-4.8) 10^3/ul Absolute Monos (auto) (0-0.8) 10^3/ul Absolute Eos (auto) (0-0.6) 10^3/ul Absolute Basos (auto) (0-0.2) 10^3/ul Absolute Nucleated RBC 10^3/ul Nucleated RBC % INR (Anticoag Therapy) (0.89-1.11) APTT (26.0-36.3) seconds D-Dimer, Quantitative (Less Than 230) ng/mL Sodium (133-145) mmol/L Potassium (3.5-5.0) mmol/L Chloride (101-111) mmol/L Carbon Dioxide (22-32) mmol/L Anion Gap (2-11) mmol/L BUN (6-24) mg/dL Creatinine (0.67-1.17) mg/dL Est GFR ( Amer) (>60) Est GFR (Non-Af Amer) (>60) BUN/Creatinine Ratio (8-20) Glucose (70-100) mg/dL Lactic Acid 2.6 H* (0.5-2.0) mmol/L Calcium (8.6-10.3) mg/dL Magnesium (1.9-2.7) mg/dL Total Bilirubin (0.2-1.0) mg/dL AST (13-39) U/L ALT (7-52) U/L Alkaline Phosphatase (34-104) U/L Total Creatine Kinase (10-223) U/L CK-MB (CK-2) (0.6-6.3) ng/mL Troponin I 0.90 H* (<0.04) ng/mL C-Reactive Protein (< 5.00) mg/L B-Natriuretic Peptide 665 H ( - 100) pg/mL Total Protein (6.4-8.9) g/dL Albumin (3.2-5.2) g/dL Globulin (2-4) g/dL Albumin/Globulin Ratio (1-3) Lipase (11.0-82.0) U/L TSH (0.34-5.60) mcIU/mL Microbiology and Other Data: Microbiology 12/23/16 06:41 Urine Culture - Final Urine Enterococcus Faecalis Assess/Plan/Problems-Billing Assessment: 86 yo M with h/o A. fib (on Pradaxa, S/p RIKI(with perivalvular leak ), severe MR and TR on Echo on 12/22/16 readmitted on the same day he was discharged for systolic CHF with NSTEMI. PC evaluated the patient, transitioned to comfort care, awaiting home hospice enrollment. - Patient Problems (1) Comfort measures only status Current Visit: Yes Comment: Stop all medications not geared towards comfort. Continue ativan. Increase morphine. Start atropine gtts. Plan to discharge to home hospice, hopefully in next 1-2 days. Prognosis likely hours-days Status and Disposition: inpatient, plan to go to home hospice
[2016-12-28] MEDS: Atropine 1% (ORAL/SL)* 15 ML BTL SL PRN ×2 (11:41→12:19)
[2016-12-28] MEDS ORDERED: LORazepam TAB(*) 1 MG PO PRN (11:52)
--- NOTE | 2016-12-28 11:58 | PN ---
Progress Note - Progress Note Note: Palliative Care follow up note: Patient more restless, tachypneic pulling at his face mask. is at the bedside. She wants him to be comfortable. Discussed the tubing/mask can be more problematic than beneficial at this point. Agreed to take off his mask to see if we can make him more comfortable. Spoke with RN to increase morphine and ativan dose and frequency. Plan is for patient to go home with hospice in AM but patient unlikely to survive to discharge.
[2016-12-28] MEDS ORDERED: LORazepam TAB(*) 1 MG ONE (12:14)
--- NOTE | 2016-12-28 13:14 | PN ---
Hospitalist Progress Note Called to see patient for absence of respirations. On arrival patient's and sons are present. Patient was unresponsive, cardiac and respiratory sounds absent, no carotid pulses appreciated. Patient pronounced at 12:39 pm on 2016. refused autopsy. Family would like patient to go to [facility] home.
--- NOTE | 2016-12-29 01:56 | DS ---
DISCHARGE/ SUMMARY: DATE OF ADMISSION: 12/23/16 DATE OF : 12/28/16 PRIMARY CARE PHYSICIAN: Arcadio Sheikh MD CAUSE OF : Ischemic cardiomyopathy. HISTORY OF PRESENT ILLNESS AND HOSPITAL SUMMARY: Please see the full history and physical by Dr. Malcolm Tellez for full details. Briefly, Mr. Wiggins was an 86- year-old male with a past medical history of ischemic cardiomyopathy who presented to the hospital shortly after discharge after he developed shortness of breath. He was found to have an NSTEMI. Cardiology was consulted and it was felt that we should attempt his medical management at this point. Over the following days, the patient's symptoms were difficult to manage. He needed diuresis; however, his blood pressures were quite low. Decision was made to proceed with palliative care consult and after realizing the patient would qualify for hospice, the decision was made to make the patient comfort care. All non-essential medications were stopped and plans were being put into place to try to get the patient on home hospice as the family wanted. Unfortunately, the patient before this could happen on 12/28/16. He was pronounced at 12:39 p.m. and the family declined an autopsy. 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 The family was concerned that there may need to be an autopsy due to this; however, I spoke to Dr. Melgoza who is a physician at the patient's primary securities teller office, Dr. Jean. Dr. Melgoza, in looking to the patient's paperwork and operative note, did not see any indication of this and did not feel that there was need for any autopsy to be done for this reason. TIME SPENT: Total time spent on this discharge, 40 minutes. This is a summary of the hospitalization. Please see the full medical record for further details. CC: Dr. Sheikh* [id number]/[facility] #: [id number] MTDD
== END 2016-12-28 12:39 | disposition expired ==
LOC: ED 00:09 → MEDTELE 03:19
PROVIDERS: ADMIT Hospitalist; ATTEND Hospitalist
DX: I21.4 Non-ST elevation (NSTEMI) myocardial infarction (principal); I50.43 Acute on chronic combined systolic (congestive) and diastolic (congestive) heart failure; G92 Toxic encephalopathy; F05 Delirium due to known physiological condition; T82.03XA Leakage of heart valve prosthesis, initial encounter; I25.10 Atherosclerotic heart disease of native coronary artery without angina pectoris; K21.9 Gastro-esophageal reflux disease without esophagitis; F41.9 Anxiety disorder, unspecified; I44.7 Left bundle-branch block, unspecified; I27.2 Other secondary pulmonary hypertension; I08.1 Rheumatic disorders of both mitral and tricuspid valves; E03.9 Hypothyroidism, unspecified; N40.0 Benign prostatic hyperplasia without lower urinary tract symptoms; F32.9 Major depressive disorder, single episode, unspecified; I73.9 Peripheral vascular disease, unspecified; I25.5 Ischemic cardiomyopathy; I48.2 Chronic atrial fibrillation; M41.9 Scoliosis, unspecified; Z66 Do not resuscitate; R06.4 Hyperventilation; B95.2 Enterococcus as the cause of diseases classified elsewhere; Z51.5 Encounter for palliative care; Y71.2 Prosthetic and other implants, materials and accessory cardiovascular devices associated with adverse incidents; Z95.1 Presence of aortocoronary bypass graft; Z82.49 Family history of ischemic heart disease and other diseases of the circulatory system; Z72.89 Other problems related to lifestyle; I25.2 Old myocardial infarction; Y92.9 Unspecified place or not applicable
CPT/HCPCS: 36415; 71010; 71275; 80048; 80053; 80061; 81003; 81015; 82550; 82553; 83605; 83690; 83735; 83880; 84443; 84484; 85025; 85027; 85379; 85610; 85730; 86140; 87077; 87086; 87186; 93005; 93306; 94760; 99213; 99284; A9270-GY; G0378; G0463; G8978-GP-CH; G8979-GP-CH; G8980-GP-CH; J1644; J1940; Q9967